=== PATIENT | male | born 1960 | race Caucasian/White ===

== ENCOUNTER → 2017-02-28 | Outpatient (CLI) | payer OTHER ==
[2017-03-01 14:21] LABS: CH 30.1; CHCM 32.2; HDW 2.17; HGB 17.9 gm/dL (13.0-17.5); MCH 30.1 pg (25.0-35.0); MCHC 32.1 g/dL (31.0-37.0); Mean Platelet Volume 10.5; RBC 5.95 m/uL (4.30-5.90); RDW 15.1 % (11.5-15.5); WBC 15.5 k/uL (3.8-10.6)
[2017-03-01 14:26] LABS: HCT 55.9 % (39.0-53.0)
[2017-03-01 15:14] LABS: Anion Gap 12 mmol/L; Blood Urea Nitrogen 17 mg/dL (9-20); Carbon Dioxide 28 mmol/L (22-30); Chloride 103 mmol/L (98-107); Non-African American GFR(MDRD) >60 (>60 ml/min/1.73 sqM); Potassium 4.7 mmol/L (3.5-5.1); Sodium 143 mmol/L (137-145)
== END | disposition home or self-care (01) ==
LOC: LABPAT 12:30
PROVIDERS: ATTEND Internal Medicine Interventional Cardiology
DX: Z01.812 Encounter for preprocedural laboratory examination (principal); R07.9 Chest pain, unspecified
CPT/HCPCS: 80051; 82565; 84520; 85027

== ENCOUNTER → 2017-09-08 | Outpatient (CLI) | payer BC | END | disposition home or self-care (01) | LOC: LABWHC1 13:29 | PROVIDERS: ATTEND Psychiatry & Neurology Neurology | DX: G89.4 Chronic pain syndrome (principal); Z79.891 Long term (current) use of opiate analgesic | CPT/HCPCS: 80307; 80324; 80356; 80369; 80372 ==

== ENCOUNTER → 2017-10-06 | Outpatient (CLI) | payer BC ==
[2017-10-06 11:33] LABS: Cholesterol 146 mg/dL (<200); HDL Cholesterol 36 mg/dL (40-60); LDL Cholesterol,Calculated 77 mg/dL (0-99); Triglycerides 164 mg/dL (<150)
== END | disposition home or self-care (01) ==
LOC: LABWHC1 10:29
PROVIDERS: ATTEND Nurse Practitioner Adult Health
DX: E78.5 Hyperlipidemia, unspecified (principal); G89.4 Chronic pain syndrome; Z79.891 Long term (current) use of opiate analgesic
CPT/HCPCS: 36415; 80061; 80356

== ENCOUNTER 2018-04-17 08:09 | Day surgery (SDC) | payer BC ==
[2018-04-15 14:41] VITALS: BMI 31.4
[~2018-04-17 08:09] MED LIST: LACTATED RINGERS 1,000 ML IV SCH
[2018-04-17] MEDS ORDERED: LIDOCAINE 1% 20 ML VIAL (10MG/ML) FOR IV START INTRADERMA ONE (08:50)
[2018-04-17] MEDS ORDERED: METOCLOPRAMIDE 5 MG/ML 2 ML VIAL IVP ONE (08:57)
[2018-04-17] MEDS ORDERED: fentaNYL (PF) 50 MCG/ML 2 ML AMP IVP ONE (09:45)
[2018-04-17 09:48] VITALS: RESP 16; TEMP 98
[2018-04-17] MEDS ORDERED: PROPOFOL 10 MG/ML 20 ML VIAL IV ONE (11:17)
[2018-04-17] MEDS ORDERED: LIDOCAINE 1% INJ 10MG/ML (20 ML MDV) ONE (11:17)
--- NOTE | 2018-04-17 11:26 | P.GSHP ---
History of Present Illness H&P Date: 04/17/18 Chief Complaint: Constipation This a 58-year-old male who presents today for colonoscopy. He's had issues with constipation. Past Medical History Past Medical History: Coronary Artery Disease (CAD), GERD/Reflux, Hyperlipidemia , Hypertension, Osteoarthritis (OA) Additional Past Medical History / Comment(s): herniated discs back & neck, migraines, palpitations, "slight ringing in ears", pain in left ankle-cause unknown, History of Any Multi-Drug Resistant Organisms: None Reported Past Surgical History: Heart Catheterization With Stent Additional Past Surgical History / Comment(s): two cardiac stent, lession removed from mouth that was non cancerous Past Anesthesia/Blood Transfusion Reactions: Motion Sickness Date of Last Stent Placement:: 03-05-17 Smoking Status: Current every day smoker - Past Family History Mother Family Medical History: Cancer Additional Family Medical History / Comment(s): breast cancer Medications and Allergies Home Medications Medication Instructions Recorded Confirmed Type ALPRAZolam [Xanax] 1 mg PO BID PRN 12/23/13 04/17/18 History Aspirin 81 mg PO HS 12/23/13 04/17/18 History Atenolol [Tenormin] 25 mg PO HS 12/23/13 04/17/18 History Cyclobenzaprine [Flexeril] 10 mg PO HS PRN 12/23/13 04/17/18 History Albuterol Inhaler [Ventolin Hfa 1 - 2 puff INHALATION Q6HR PRN 02/27/17 History Inhaler] Lactulose 10 gm PO HS 02/27/17 04/17/18 History Lisinopril [Prinivil] 20 mg PO HS 30 Days #30 tablet 03/06/17 04/17/18 Rx Atorvastatin [Lipitor] 40 mg PO HS 04/15/18 04/17/18 History Hydrochlorothiazide 25 mg PO DAILY 04/15/18 04/17/18 History Meloxicam [Mobic] 15 mg PO HS 04/15/18 04/17/18 History oxyCODONE HCL/ACETAMINOPHEN 1 tab PO TID 04/15/18 04/17/18 History [Percocet 10-325 mg] Acetaminophen [Tylenol] 2 tab PO ONCE 04/17/18 04/17/18 History Allergies Allergy/AdvReac Type Severity Reaction Status Date / Time bee pollen [Bee Pollen] Allergy Anaphylaxis Verified 04/17/18 08:17 Penicillins Allergy Rash/Hives Verified 04/17/18 08:17 Surgical - Exam Vital Signs Temp Pulse Resp BP Pulse Ox 98.0 F 69 16 139/65 95 04/17/18 08:28 04/17/18 08:28 04/17/18 08:28 04/17/18 08:28 04/17/18 08:28 - General well developed, well nourished, no distress - Eyes PERRL - ENT normal pinna - Neck no masses - Respiratory normal expansion - Cardiovascular Rhythm: regular - Abdomen Abdomen: soft, non tender Assessment and Plan Assessment: Constipation. We'll perform colonoscopy.
--- NOTE | 2018-04-17 11:41 | P.OP ---
Date of Procedure: 04/17/18 Preoperative Diagnosis: Constipation Postoperative Diagnosis: Incomplete colonoscopy Tortuous colon Diverticulosis Procedure(s) Performed: Colonoscopy Anesthesia: MAC Surgeon: Augustus Sharma Pathology: none sent Condition: stable Disposition: PACU Description of Procedure: The patient's placed on the endoscopy table in the lateral position. He received IV sedation. Digital rectal exam was performed which which revealed external hemorrhoids. Flexible colonoscope was then placed patient anus passed passed throughout the colon. The scope could not be passed beyond the left colon secondary to tortuosity of the bowel. Several times made to maneuver the colonoscope through the bowel however this wasn't possible. Scope was withdrawn. There were diverticular changes seen in the sigmoid colon the scope was then brought back the rectum and this appeared normal. Scope withdrawn for patient. Patient was scheduled for a barium enema to evaluate the remaining colon.
[2018-04-17 12:17] VITALS: BP 160/79; PULSE 60
--- NOTE | 2018-04-17 15:53 | FL ---
EXAMINATION TYPE: FL barium enema w air contrast DATE OF EXAM: 04/17/2018 COMPARISON: NONE HISTORY: Incomplete colonoscopy. Colonoscopy did not proceed past the sigmoid colon. TECHNIQUE: A double contrast barium enema study is performed. A total of 3 minutes 59 seconds of flu oroscopic time was utilized during procedure. 29 spot images are saved to PACS. FINDINGS: Flatcar Whacker view of the abdomen shows somewhat prominent gas in right and transverse colon. Barium enema is attempted. Patient is in severe pain and could not complete enema evaluation through the entire redundant right colon. There was air lock with difficulty passing contrast against promine nt air-filled proximal colonic loops There is successful passage up to level of hepatic flexure befor e patient could not continue. Visualized portion of colon shows no suspicious constricting mass or ne oplasm. Diverticulosis is identified in the sigmoid colon and distal aspect of the left colon. No dimas picious polyps are present. Appendix and terminal ileum were not assessed. IMPRESSION: Suboptimal study without constricting lesion in visualized portion of colon. Successful passage through the sigmoid colon without obstructing or constricting mass. Fairly moderate sigmoid c olonic diverticulosis is noted.
== END 2018-04-17 14:25 | disposition home or self-care (01) ==
LOC: ORWHC2ENDO 08:09
PROVIDERS: ATTEND Surgery
DX: K57.30 Diverticulosis of large intestine without perforation or abscess without bleeding (principal); K64.4 Residual hemorrhoidal skin tags; Q43.8 Other specified congenital malformations of intestine; K21.9 Gastro-esophageal reflux disease without esophagitis; I25.10 Atherosclerotic heart disease of native coronary artery without angina pectoris; I10 Essential (primary) hypertension; F17.210 Nicotine dependence, cigarettes, uncomplicated; E78.5 Hyperlipidemia, unspecified; Z80.3 Family history of malignant neoplasm of breast; Z95.5 Presence of coronary angioplasty implant and graft; M19.90 Unspecified osteoarthritis, unspecified site; M25.579 Pain in unspecified ankle and joints of unspecified foot; M51.26 Other intervertebral disc displacement, lumbar region; M50.20 Other cervical disc displacement, unspecified cervical region; G43.909 Migraine, unspecified, not intractable, without status migrainosus; J45.909 Unspecified asthma, uncomplicated; Z79.82 Long term (current) use of aspirin; Z79.1 Long term (current) use of non-steroidal anti-inflammatories (NSAID); Z79.891 Long term (current) use of opiate analgesic; Z79.899 Other long term (current) drug therapy; Z88.0 Allergy status to penicillin; Z91.030 Bee allergy status
CPT/HCPCS: 74280; 45330; J2765; J2001; J3010; J2704; 45378

== ENCOUNTER → 2018-05-18 | Outpatient (CLI) | payer BC ==
--- NOTE | 2018-05-18 20:28 | CT ---
EXAMINATION TYPE: CT abdomen pelvis w con DATE OF EXAM: 05/18/2018 COMPARISON: None HISTORY: Bilateral lower quadrant abdominal pain. CT DLP: 1306.8 mGycm Automated exposure control for dose reduction was used. CONTRAST: CT scan of the abdomen pelvis is performed with IV Contrast, patient injected with 100ml mL of Isovue 300. FINDINGS- LUNG BASES-linear changes involving the lung bases most typical atelectasis. LIVER/GB- No gross abnormality is appreciated. PANCREAS- No gross abnormality is seen. SPLEEN- No gross abnormality is seen. ADRENALS- No gross abnormality is seen. KIDNEYS/BLADDER- no hydronephrosis. There is a 3 mm calculus in the mid pole right kidney with no hyd ronephrosis. Hypodensity measuring 5 mm or less within the posterior midpole left kidney is too small to characterize. Could be followed on short-term basis to confirm stability. BOWEL-diverticulosis of the colon noted. Retained fecal debris correlate for constipation.. LYMPH NODES- No greater than 1cm abdominal or pelvic lymph nodes areappreciated. OSSEOUS STRUCTURES-hypertrophic and degenerative changes of the vertebral column.. Canal stenosis at L3-4, L4-5 and L5-S1 suspected. Arthropathy of the hips. OTHER- bilateral fat-containing inguinal hernias. Aorta of normal caliber with atherosclerotic trujillo es of the visualized vasculature. No aneurysm. Fat-containing periumbilical hernia. Metallic density is seen within the sigmoid colon region may be extrinsic to the patient's colon. Measures less than 5 mm and appears to lie outside of the colon. IMPRESSION- 1. Mid to lower pole less than 5 mm right renal calculus with no hydronephrosis. 2. Indeterminate less than 5 mm left renal lesion. 3. Minimal diverticulosis of the sigmoid colon. 4. Small fat-containing periumbilical hernia with no inflammatory changes. 5. Small bilateral fat-containing inguinal hernia with no evidence of inflammatory change..
== END | disposition home or self-care (01) ==
LOC: RADCTMAIN 15:57
PROVIDERS: ATTEND Surgery
DX: N20.0 Calculus of kidney (principal); K57.30 Diverticulosis of large intestine without perforation or abscess without bleeding; K42.9 Umbilical hernia without obstruction or gangrene; K40.20 Bilateral inguinal hernia, without obstruction or gangrene, not specified as recurrent
CPT/HCPCS: 74177; Q9967

== ENCOUNTER 2018-07-15 06:45 | Day surgery (SDC) | payer BC ==
[2018-07-13 13:02] VITALS: BMI 30.4
[~2018-07-15 06:45] MED LIST changes: +DEXAMETHASONE SOD PHOSPHATE 10 MG/ML 1 ML VIAL IV ONE; +HEPARIN SODIUM,PORCINE 5,000 UNIT/ML 1 ML VIAL SQ ONE; +HYDROmorphone 0.5 MG/0.5 ML SYRINGE IVP PRN; -LACTATED RINGERS 1,000 ML IV SCH; +LIDOCAINE 1% 20 ML VIAL (10MG/ML) FOR IV START INTRADERMA PRN; +MIDAZOLAM (PF) 2 MG/2 ML VIAL IV PRN; +ONDANSETRON 4 MG/2 ML VIAL IVP ONE; +SCOPOLAMINE 1.5MG/72HR PATCH TRANSDERM ONE; +ceFAZolin IN SWFI 2 GM/20 ML SYRINGE IVP ONE
[2018-07-15] MEDS ORDERED: ALBUTEROL NEBULIZED 2.5 MG/3 ML INHALATION STA (07:19)
[2018-07-15] MEDS: LACTATED RINGERS 1,000 ML IV SCH (07:27)
--- NOTE | 2018-07-15 07:47 | P.GSHP ---
History of Present Illness H&P Date: 07/15/18 Chief Complaint: Umbilical hernia Asst. 4-year-old male who presents today for laparoscopic robotic repair of umbilical hernia. Patient developed an incarcerated umbilical hernia. Past Medical History Past Medical History: Asthma, Coronary Artery Disease (CAD), Hyperlipidemia, Hypertension, Osteoarthritis (OA) Additional Past Medical History / Comment(s): herniated discs back & neck, migraines, constipation, "slight ringing in ears", recent URI-was treated but still has slight productive cough, hx bronchitis, diverticulitis, History of Any Multi-Drug Resistant Organisms: None Reported Past Surgical History: Heart Catheterization With Stent Additional Past Surgical History / Comment(s): pain clinic procedures/nerve blocks, two cardiac stent, lession removed from mouth Past Anesthesia/Blood Transfusion Reactions: No Reported Reaction Date of Last Stent Placement:: 03-05-17 Smoking Status: Current every day smoker - Past Family History Mother Family Medical History: Cancer Additional Family Medical History / Comment(s): breast cancer Medications and Allergies Home Medications Medication Instructions Recorded Confirmed Type Aspirin 81 mg PO HS 12/23/13 07/15/18 History Atenolol [Tenormin] 25 mg PO HS 12/23/13 07/15/18 History Cyclobenzaprine [Flexeril] 10 mg PO HS PRN 12/23/13 07/15/18 History Albuterol Inhaler [Ventolin Hfa 1 - 2 puff INHALATION Q6HR PRN 02/27/17 07/15/18 History Inhaler] Lactulose 10 gm PO HS 02/27/17 07/15/18 History Lisinopril [Prinivil] 20 mg PO HS 30 Days #30 tablet 03/06/17 07/15/18 Rx Atorvastatin [Lipitor] 40 mg PO HS 04/15/18 07/15/18 History Meloxicam [Mobic] 15 mg PO HS 04/15/18 07/15/18 History ALPRAZolam [Xanax] 1 mg PO BID 07/13/18 07/15/18 History Aspercream(Dose Unknown) 1 applicate TOPICAL DIRECTED 07/13/18 07/15/18 History Docusate [Colace] 100 mg PO TID 07/13/18 07/15/18 History Furosemide [Lasix] 20 mg PO DAILY PRN 07/13/18 07/15/18 History Hydrocodone/Acetaminophen [[place] 1 tab PO QID PRN 07/13/18 07/15/18 History 10-325] Allergies Allergy/AdvReac Type Severity Reaction Status Date / Time bee pollen [Bee Pollen] Allergy Anaphylaxis Verified 07/15/18 06:59 codeine Allergy Unknown Verified 07/15/18 06:59 Penicillins Allergy Rash/Hives Verified 07/15/18 06:59 Surgical - Exam Vital Signs Pulse Resp BP Pulse Ox 69 16 141/68 95 07/15/18 07:02 07/15/18 07:02 07/15/18 07:02 07/15/18 07:02 - General well developed, well nourished, no distress - Eyes PERRL - ENT normal pinna - Neck no masses - Respiratory normal expansion - Cardiovascular Rhythm: regular - Abdomen Abdomen: soft, non tender Hernia: umbilical (3 cm incarcerated umbilical hernia) Results - Labs 07/15/18 07:22 Diabetes panel 07/15/18 Range/Units 07:22 Potassium 4.5 (3.5-5.1) mmol/L Pituitary panel 07/15/18 Range/Units 07:22 Potassium 4.5 (3.5-5.1) mmol/L Adrenal panel 07/15/18 Range/Units 07:22 Potassium 4.5 (3.5-5.1) mmol/L Assessment and Plan Assessment: Impression mild hernia. We'll perform laparoscopic robotic-assisted repair.
[2018-07-15] MEDS ORDERED: ROCURONIUM BROMIDE 10 MG/ML 10 ML VIAL IV ONE (07:54)
[2018-07-15] MEDS ORDERED: KETOROLAC 30 MG/ML 1 ML VIAL ONE (07:54)
[2018-07-15] MEDS ORDERED: PROPOFOL 10 MG/ML 20 ML VIAL IV ONE (07:54)
[2018-07-15] MEDS ORDERED: fentaNYL (PF) 50 MCG/ML 2 ML AMP ONE (07:54)
[2018-07-15] MEDS ORDERED: SUCCINYLCHOLINE CHLORIDE 100 MG/5 ML SYR IV ONE (07:54)
[2018-07-15] MEDS ORDERED: MIDAZOLAM 2 MG/2 ML VIAL ONE (07:54)
[2018-07-15] MEDS ORDERED: GLYCOPYRROLATE 0.2 MG/ML 2 ML VIAL ONE (07:54)
[2018-07-15] MEDS ORDERED: LIDOCAINE 1% INJ 10MG/ML (20 ML MDV) ONE (07:54)
[2018-07-15] MEDS ORDERED: MORPHINE SULFATE 10 MG/ML SYRINGE ONE (07:54)
[2018-07-15] MEDS ORDERED: ePHEDrine SULFATE/0.9% NACL/PF 50 MG/5 ML SYRINGE IV ONE (07:54)
[2018-07-15] MEDS ORDERED: NEOSTIGMINE 1 MG/ML 10 ML VIAL ONE (07:54)
[2018-07-15] MEDS ORDERED: BUPIVACAIN-EPI 0.5%-1:200,000 30 ML VIAL SQ ONE (08:22)
[2018-07-15] MEDS: MEPERIDINE 50 MG/ML SYRINGE IVP ONE ×2 (09:26→09:33)
[2018-07-15 09:35] VITALS: TEMP 97.7
--- NOTE | 2018-07-15 10:00 | P.OP ---
Date of Procedure: 07/15/18 Preoperative Diagnosis: Incarcerated umbilical hernia Bilateral inguinal hernia Postoperative Diagnosis: Incarcerated umbilical hernia Bilateral inguinal hernia Procedure(s) Performed: Laparoscopic robotic system repair of bilateral hernia Laparoscopic repair of incarcerated umbilical hernia Excision of omentum Excision of bilateral cord lipomas Anesthesia: HEVER Surgeon: Augustus Sharma Estimated Blood Loss (ml): 5 Pathology: other (Omentum, cord lipomas) Condition: stable Disposition: PACU Description of Procedure: The patient's placed on the operating table in the supine position. The patient received general anesthesia. The patient's abdomen was prepped and draped in usual sterile fashion. The skin was anesthetized 1% local Xylocaine at the incision sites. Using an 11 blade a skin incision was made at the umbilicus. The incarcerated omentum was dissected free. The fascia was grasped with a Maspeth and then the peritoneal cavity was entered with the Veress needle. Position of the Veress needle was confirmed with a positive drop test. After adequate insufflation a 5 mm trocar was placed into the peritoneal cavity. The Laparoscope was placed the peritoneal cavity. And a robotic 8 mm trocar was placed in the right lateral position and then another 8 mm robotic trochars placed in the left lateral position. The original 5 mm trocar was exchanged for a 12 mm trocar. The patient was placed in reverse Trendelenburg and then the patient was docked to the robot. Next the peritoneum over top of the right inguinal hernia was incised and then using blunt and sharp dissection and electrocautery the hernia sac was dissected free from the floor of the inguinal canal. The cord lipoma was dissected free from the cord. The hernia sac was completely reduced into the peritoneal cavity. And then using the Pro nutrition assistant mesh the hernia was repaired. The peritoneum was then sutured with 20V lock suture. Next, the left inguinal hernia was repaired.Next the peritoneum over top of the hernia was incised and then using blunt and sharp dissection and electrocautery the hernia sac was dissected free from the floor of the inguinal canal. The cord lipoma was dissected free from the cord. The hernia sac was completely reduced into the peritoneal cavity. And then using the Pro nutrition assistant mesh the hernia was repaired. The peritoneum was then sutured with 20V lock suture. The patient was then undocked the robot. The cord lipomas were retrieved. The needle was withdrawn from the peritoneal cavity. The umbilical hernia site was closed with 0 Ethibond suture. The skin was closed interrupted 3-0 Monocryl suture. Dermabond dressing was applied. Patient was sent to recovery in stable condition.
[2018-07-15] MEDS ORDERED: HYDROcodone/APAP 10-325MG 1 EACH TAB PO ONE ×2 (10:23→10:58)
[2018-07-15 11:31] VITALS: RESP 18
[2018-07-15 11:32] VITALS: PULSE 70
[2018-07-15 11:34] VITALS: BP 151/76
== END 2018-07-15 12:15 | disposition home or self-care (01) ==
LOC: OR 06:45
PROVIDERS: ATTEND Surgery
DX: K42.0 Umbilical hernia with obstruction, without gangrene (principal); K40.20 Bilateral inguinal hernia, without obstruction or gangrene, not specified as recurrent; D17.6 Benign lipomatous neoplasm of spermatic cord; I25.10 Atherosclerotic heart disease of native coronary artery without angina pectoris; I10 Essential (primary) hypertension; F17.200 Nicotine dependence, unspecified, uncomplicated; E78.5 Hyperlipidemia, unspecified; M19.90 Unspecified osteoarthritis, unspecified site; J44.9 Chronic obstructive pulmonary disease, unspecified; Z95.5 Presence of coronary angioplasty implant and graft; Z79.1 Long term (current) use of non-steroidal anti-inflammatories (NSAID); Z79.82 Long term (current) use of aspirin; Z79.899 Other long term (current) drug therapy; Z79.891 Long term (current) use of opiate analgesic; Z88.5 Allergy status to narcotic agent; Z88.0 Allergy status to penicillin; Z91.030 Bee allergy status
CPT/HCPCS: 49650; 49653; S2900; 84132; 88304; 88305; 93005; 94640

== ENCOUNTER 2020-04-07 22:08 | Emergency (ER) | payer BC ==
[2020-04-07 22:12] VITALS: TEMP 98.3
--- NOTE | 2020-04-07 22:23 | ED ---
Chest Pain HPI - General Chief Complaint: Chest Pain Stated Complaint: Chest Pain Time Seen by Provider: 04/07/20 22:19 Source: patient, RN notes reviewed, old records reviewed Mode of arrival: ambulatory Limitations: no limitations - History of Present Illness Initial Comments: This is a 60-year-old male to the ER for evaluation chest pain. Patient states earlier today his heart rate or cough was very rapid, short of breath, palpitations. Heart was beating heaviness chest. Patient's history of asthma CAD hypertension high cholesterol. MD Complaint: chest pain -: hour(s) Onset: during rest Pain Location: substernal Pain Radiation: none Severity: moderate Severity scale (1-10): 7 Quality: tightness Consistency: constant Improves With: other (none) Worsens With: nothing Anginal Symptoms: nausea, dyspnea Other Symptoms: rash Treatments Prior to Arrival: none - Related Data Home Medications Medication Instructions Recorded Confirmed Aspirin 81 mg PO HS 12/23/13 04/07/20 Cyclobenzaprine [Flexeril] 10 mg PO TID PRN 12/23/13 04/07/20 atenoloL [Tenormin] 25 mg PO HS 12/23/13 04/07/20 Atorvastatin [Lipitor] 40 mg PO HS 04/15/18 04/07/20 ALPRAZolam [Xanax] 1 mg PO BID PRN 07/13/18 04/07/20 Furosemide [Lasix] 20 mg PO DAILY PRN 07/13/18 04/07/20 Hydrocodone/Acetaminophen [[place] 1 tab PO QID 07/13/18 04/07/20 10-325] [place]ien 1 tab PO AC-LUNCH 04/07/20 04/07/20 Lucien 2 tab PO AC-SUPPER 04/07/20 04/07/20 Butalb/APAP/Caff 50-325-40Mg 1 tab PO Q8HR PRN 04/07/20 04/07/20 [Fioricet 50-325-40] Fish Oil/Dha/Epa [Fish Oil 1,200 1 cap PO DAILY 04/07/20 04/07/20 mg Fish Oil] Ibuprofen [Motrin] 800 mg PO BID PRN 04/07/20 04/07/20 Magnesium(Unknown Dose) 1 tab PO DAILY PRN 04/07/20 04/07/20 Multivitamins, Thera [Multivitamin 1 tab PO HS 04/07/20 04/07/20 (formulary)] Nitroglycerin Sl Tabs [Nitrostat] 0.4 mg SL Q5M PRN 04/07/20 04/07/20 Previous Rx's Medication Instructions Recorded lisinopriL [Prinivil] 20 mg PO HS 30 Days #30 tablet 03/06/17 Allergies Allergy/AdvReac Type Severity Reaction Status Date / Time bee pollen [Bee Pollen] Allergy Anaphylaxis Verified 04/07/20 23:05 bee venom protein (honey bee) Allergy Anaphylaxis Verified 04/07/20 23:05 codeine Allergy Unknown Verified 04/07/20 23:05 Penicillins Allergy Rash/Hives Verified 04/07/20 23:05 Review of Systems ROS Statement: Those systems with pertinent positive or pertinent negative responses have been documented in the HPI. ROS Other: All systems not noted in ROS Statement are negative. EKG Findings - EKG Comments: EKG Findings:: EKG shows NSR 64 [place] 204 QRS 98 QTc 396 Past Medical History Past Medical History: Asthma, Coronary Artery Disease (CAD), Hyperlipidemia, Hypertension, Osteoarthritis (OA) Additional Past Medical History / Comment(s): herniated discs back & neck, migraines, constipation, "slight ringing in ears", recent URI-was treated but still has slight productive cough, hx bronchitis, diverticulitis, History of Any Multi-Drug Resistant Organisms: None Reported Past Surgical History: Heart Catheterization With Stent Additional Past Surgical History / Comment(s): pain clinic procedures/nerve blocks, two cardiac stent, lession removed from mouth Past Anesthesia/Blood Transfusion Reactions: No Reported Reaction Date of Last Stent Placement:: 03-05-17 Past Psychological History: Anxiety Smoking Status: Current every day smoker Past Alcohol Use History: Rare Past Drug Use History: None Reported - Past Family History Mother Family Medical History: Cancer Additional Family Medical History / Comment(s): breast cancer General Exam Limitations: no limitations General appearance: alert, in no apparent distress Head exam: Present: atraumatic, normocephalic, normal inspection Eye exam: Present: normal appearance, PERRL, EOMI. Absent: scleral icterus, conjunctival injection, periorbital swelling ENT exam: Present: normal exam, mucous membranes moist Neck exam: Present: normal inspection. Absent: tenderness, meningismus, lymphadenopathy Respiratory exam: Present: normal lung sounds bilaterally. Absent: respiratory distress, wheezes, rales, rhonchi, stridor Cardiovascular Exam: Present: regular rate, normal rhythm, normal heart sounds. Absent: systolic murmur, diastolic murmur, rubs, gallop, clicks GI/Abdominal exam: Present: soft, normal bowel sounds. Absent: distended, tenderness, guarding, rebound, rigid Extremities exam: Present: normal inspection, full ROM, normal capillary refill. Absent: tenderness, pedal edema, joint swelling, calf tenderness Back exam: Present: normal inspection Neurological exam: Present: alert, oriented X3, CN II-XII intact Psychiatric exam: Present: normal affect, normal mood Skin exam: Present: warm, dry, intact, normal color. Absent: rash Course Vital Signs 04/07/20 04/07/20 04/07/20 22:08 22:28 23:14 Temperature 98.3 F Pulse Rate 68 63 Pulse Rate [ 63 Hog Buyer ] Respiratory 20 18 Rate Blood Pressure 175/76 145/78 O2 Sat by Pulse 97 98 Oximetry 04/08/20 02:03 Temperature Pulse Rate 60 Pulse Rate [ Hog Buyer ] Respiratory 18 Rate Blood Pressure 142/86 O2 Sat by Pulse 98 Oximetry - Reevaluation(s) Reevaluation #1: Medical record is reviewed Patient has resolution improvement in symptoms throughout ER stay Patient continues to feel better Patient informed results and questions are answered Patient feels good for discharge home Reevaluation #2: Spoke with patient at length regarding long history of heart disease, patient states her to follow-up as an outpatient, troponin did not blood here in the ER and patient can be discharged home understanding risks of discharge included possible heart disease and concurrent heart damage Chest Pain MDM - MDM 60 male with atypical chest pain here in the ER. Palpitations. Patient feels good for discharge and can be discharged home, patient was offered observation which she has refused Disposition Clinical Impression: Atypical chest pain, Chest pain Disposition: HOME SELF-CARE Condition: Good Instructions (If sedation given, give patient instructions): Chest Pain (ED) Is patient prescribed a controlled substance at d/c from ED?: No Referrals: Soo Olivier MD [Primary Care Provider] - 1-2 days
[2020-04-07 22:46] LABS: Basophils # (A) 0.3 k/uL (0-0.2); Basophils % (A) 1 %; Eosinophils # (A) 0.4 k/uL (0-0.7); Eosinophils % (A) 2 %; HCT 48.9 % (39.0-53.0); HGB 16.7 gm/dL (13.0-17.5); Lymphocytes # (A) 4.7 k/uL (1.0-4.8); Lymphocytes % (A) 25 %; MCH 32.5 pg (25.0-35.0); MCHC 34.1 g/dL (31.0-37.0); MCV 95.1 fL (80.0-100.0); Mean Platelet Volume 8.8; Monocytes % (A) 5 %; Neutrophils % (A) 65 %; Platelet Count 189 k/uL (150-450); RBC 5.14 m/uL (4.30-5.90); WBC 18.7 k/uL (3.8-10.6)
--- NOTE | 2020-04-07 22:51 | XR ---
EXAMINATION TYPE: XR chest 2V DATE OF EXAM: 04/07/2020 COMPARISON: NONE HISTORY: Chest pain. Short of breath. TECHNIQUE: 2 views FINDINGS: There is coarse interstitial density in the lungs. Heart size is normal. There are no hilar masses. Costophrenic angles are clear. Bony thorax is intact. IMPRESSION: Pulmonary interstitial fibrosis. Normal heart. No acute lung disease.
[2020-04-07 22:57] LABS: Albumin 4.5 g/dL (3.5-5.0); Calcium 9.5 mg/dL (8.4-10.2); Magnesium 2.2 mg/dL (1.6-2.3); Total Bilirubin 0.5 mg/dL (0.2-1.3); Total Protein 7.2 g/dL (6.3-8.2)
[2020-04-07 22:58] LABS: Partial Thromboplastin Time 24.7 sec (22.0-30.0); Prothrombin Time 10.7 sec (9.0-12.0)
[2020-04-07 23:15] VITALS: RESP 18
[2020-04-08 02:04] VITALS: BP 142/86; PULSE 60
== END 2020-04-08 02:04 | disposition home or self-care (01) ==
LOC: EC 22:08
DX: R07.89 Other chest pain (principal); R00.2 Palpitations; F41.9 Anxiety disorder, unspecified; J45.909 Unspecified asthma, uncomplicated; E78.5 Hyperlipidemia, unspecified; I10 Essential (primary) hypertension; M19.90 Unspecified osteoarthritis, unspecified site; I25.10 Atherosclerotic heart disease of native coronary artery without angina pectoris; F17.200 Nicotine dependence, unspecified, uncomplicated; Z79.82 Long term (current) use of aspirin; Z79.899 Other long term (current) drug therapy; Z88.0 Allergy status to penicillin; Z88.5 Allergy status to narcotic agent; Z91.030 Bee allergy status; Z95.5 Presence of coronary angioplasty implant and graft; Z86.14 Personal history of Methicillin resistant Staphylococcus aureus infection
CPT/HCPCS: 36415; 71046; 80053; 83735; 84484; 85025; 85610; 85730; 93005; 99285

== ENCOUNTER → 2020-05-17 | Outpatient (CLI) | payer BC ==
[2020-05-17 11:24] LABS: African American GFR (CKD) >90 (>60 ml/min/1.73 sqM); Anion Gap 9 mmol/L; Blood Urea Nitrogen 15 mg/dL (9-20); Carbon Dioxide 25 mmol/L (22-30); Chloride 107 mmol/L (98-107); Non-African American GFR(CKD) 89 (>60 ml/min/1.73 sqM); Potassium 4.5 mmol/L (3.5-5.1); Sodium 141 mmol/L (137-145)
[2020-05-17 11:25] LABS: HCT 48.1 % (39.0-53.0); HGB 15.6 gm/dL (13.0-17.5); MCH 31.2 pg (25.0-35.0); MCHC 32.5 g/dL (31.0-37.0); MCV 95.8 fL (80.0-100.0); Mean Platelet Volume 9.4; Platelet Count 201 k/uL (150-450); RBC 5.02 m/uL (4.30-5.90); RDW 13.5 % (11.5-15.5); WBC 16.5 k/uL (3.8-10.6)
== END | disposition home or self-care (01) ==
LOC: LABPAT 09:47
PROVIDERS: ATTEND Internal Medicine Interventional Cardiology
DX: Z01.818 Encounter for other preprocedural examination (principal); I25.10 Atherosclerotic heart disease of native coronary artery without angina pectoris
CPT/HCPCS: 80051; 82565; 84520; 85027

== ENCOUNTER 2020-05-19 08:10 | Day surgery (SDC) | payer BC ==
[2020-05-16 09:38] VITALS: BMI 30.1
[~2020-05-19 08:10] MED LIST changes: +ALPRAZolam 0.25 MG TAB PO PRN; +ASPIRIN 325 MG TAB PO STA; -DEXAMETHASONE SOD PHOSPHATE 10 MG/ML 1 ML VIAL IV ONE; +HEPARIN SODIUM,PORCINE 10,000 UNIT in SODIUM CHLORIDE 0.9% 1,000 ML IRRIGATION PRN; +HEPARIN SODIUM,PORCINE 2,500 UNIT in SODIUM CHLORIDE 0.9% 250 ML IRRIGATION PRN; -HEPARIN SODIUM,PORCINE 5,000 UNIT/ML 1 ML VIAL SQ ONE; -HYDROmorphone 0.5 MG/0.5 ML SYRINGE IVP PRN; -LIDOCAINE 1% 20 ML VIAL (10MG/ML) FOR IV START INTRADERMA PRN; -MIDAZOLAM (PF) 2 MG/2 ML VIAL IV PRN; +NITROGLYCERIN SL TABS 0.4 MG TAB SUBLINGUAL PRN; -ONDANSETRON 4 MG/2 ML VIAL IVP ONE; -SCOPOLAMINE 1.5MG/72HR PATCH TRANSDERM ONE; +SODIUM CHLORIDE 0.9% 1,000 ML in EMPTY BAG 1 BAG IV ONE; -ceFAZolin IN SWFI 2 GM/20 ML SYRINGE IVP ONE
[2020-05-19] MEDS ORDERED: VERAPAMIL 2.5 MG/ML 2 ML AMP ONE (08:37)
[2020-05-19] MEDS ORDERED: LIDOCAINE 1% INJ 10MG/ML (20 ML MDV) ONE (08:37)
[2020-05-19 08:41] VITALS: RESP 16; TEMP 97.9
[2020-05-19 08:56] LABS: Basophils # (A) 0.1 k/uL (0-0.2); Basophils % (A) 1 %; Eosinophils # (A) 0.3 k/uL (0-0.7); Eosinophils % (A) 2 %; HCT 47.3 % (39.0-53.0); HGB 15.9 gm/dL (13.0-17.5); Lymphocytes # (A) 4.9 k/uL (1.0-4.8); Lymphocytes % (A) 30 %; MCHC 33.7 g/dL (31.0-37.0); MCV 94.9 fL (80.0-100.0); Mean Platelet Volume 9.1; Monocytes # (A) 0.9 k/uL (0-1.0); Monocytes % (A) 5 %; Neutrophils # (A) 9.9 k/uL (1.3-7.7); Neutrophils % (A) 61 %; Platelet Count 193 k/uL (150-450); RBC 4.98 m/uL (4.30-5.90); WBC 16.3 k/uL (3.8-10.6)
[2020-05-19] MEDS ORDERED: MIDAZOLAM 2 MG/2 ML VIAL IV ONE ×2 (09:12→09:17)
[2020-05-19] MEDS ORDERED: LIDOCAINE 1% INJ 10MG/ML (20 ML MDV) SQ ONE (09:13)
[2020-05-19] MEDS ORDERED: HEPARIN SODIUM 1,000 UN/ML (10ML VL) ONE (09:14)
[2020-05-19] MEDS ORDERED: VERAPAMIL SYRINGE (5 MG/10 ML) INTRAARTER ONE (09:15)
[2020-05-19] MEDS ORDERED: HEPARIN SODIUM 1,000 UN/ML (10ML VL) IV ONE (09:16)
[2020-05-19] MEDS ORDERED: CLOPIDOGREL 75 MG TAB PO ONE (09:35)
[2020-05-19] MEDS ORDERED: IOPAMIDOL-370 125ML BTL INJ ONE (09:35)
[2020-05-19] MEDS ORDERED: CLOPIDOGREL 75 MG TAB ONE (09:36)
[2020-05-19] MEDS ORDERED: ALPRAZolam 1 MG TAB PO PRN (09:41)
[2020-05-19] MEDS ORDERED: IBUPROFEN 800 MG TAB PO PRN (09:41)
[2020-05-19] MEDS ORDERED: CYCLOBENZAPRINE 10 MG TAB PO PRN (09:41)
[2020-05-19] MEDS ORDERED: BUTALB/APAP/CAFF 50-325-40MG TAB PO PRN (09:41)
[2020-05-19] MEDS ORDERED: FUROSEMIDE 20 MG TAB PO PRN (09:41)
[2020-05-19] MEDS ORDERED: ZOLPIDEM 5 MG TAB PO PRN (09:44)
[2020-05-19] MEDS ORDERED: MAG HYDROX/AL HYDROX/SIMETH 30 ML CUP PO PRN (09:44)
[2020-05-19] MEDS ORDERED: NITROGLYCERIN SL TABS 0.4 MG TAB SUBLINGUAL PRN (09:44)
[2020-05-19] MEDS ORDERED: RX INFO: IV CONTRAST WAS GIVEN 1 EACH MISC MISCELLANE PRN (09:44)
[2020-05-19] MEDS ORDERED: ATROPINE SULFATE 0.1 MG/ML 10ML SYRINGE IV PRN (09:44)
[2020-05-19] MEDS ORDERED: SODIUM CHLORIDE 0.9% 1,000 ML IV SCH (09:45)
--- NOTE | 2020-05-19 10:33 | CC ---
CARDIAC CATHETERIZATION REPORT CARDIAC CATHETERIZATION AND PERCUTANEOUS CORONARY INTERVENTION: PERFORMING PHYSICIAN: Chapincito Parker MD. PROCEDURE PERFORMED: 1. Selective right and left coronary angiogram. 2. Left heart catheterization. 3. Successful stenting of the mid RCA using 3.25 x 12 mm Xience drug-eluting stent with an excellent angiographic result. INDICATION: This is a 60-year-old gentleman with coronary artery disease and prior stenting of the RCA and LAD who was seen in the office recently for intermittent episodes of chest discomfort. He underwent a myocardial perfusion imaging stress test and that came in to be abnormal showing anterior ischemia. Because of that, a heart catheterization was advised. APPROACH: Right radial artery. COMPLICATION: None. LEVEL OF SEDATION: Moderate with sedation length of 22 minutes. PROCEDURE DESCRIPTION: After obtaining an informed consent, the patient was brought to the cardiac landscaping and groundskeeping laborer. The right radial artery was cannulated using micropuncture technique, the micropuncture wire passed easily then I placed a 6-[place] sheath at the right radial artery. Verapamil IA 2 mg and 10,000 units of heparin IV. Selective right and left coronary angiogram performed using JR4 and JL3.5 catheters. Left heart catheterization was performed using the JR4 catheter which crossed the aortic valve then I did pullback across the valve. After that I did intervene on the right coronary artery. Please see a separate paragraph for that. SELECTIVE CORONARY ANGIOGRAM: 1. The RCA is a large caliber vessel and it is a dominant vessel. The RCA is stented in the midportion. Proximal to the stented segment, there was an area of eccentric plaque appeared to be in the range of 70%. The RCA distally appeared to be angiographically normal. After that, it bifurcates into PDA and PLV branches both appeared to be angiographically normal. 2. The left main is angiographically normal. It bifurcates into LCX and LAD. 3. The LCX is a large caliber vessel. It is a nondominant vessel. The proximal left circumflex is angiographically normal. It gives rise into the first obtuse marginal branch which appeared to be angiographically normal. The mid left circumflex has mild disease only and the circumflex distally appeared to be angiographically normal. 4. The LAD: The proximal LAD appeared to be angiographically normal. The mid LAD has a tubular lesion appeared to be in the range of 60%. The LAD distally appeared to be angiographically normal. HEMODYNAMICS: The LVEDP was about 20 mmHg without significant gradient across the aortic valve. PCI OF THE RCA: Anticoagulation was initiated using heparin. The patient was given a dose of 10,000 units of heparin IV at the beginning of the procedure with continuous ACT monitoring throughout the procedure. Engaging the right coronary artery was achieved using JR4 guide. After that I did wire the right coronary artery using a run-through wire. After that I did direct stenting of the lesion using 3.25 x 12 mm Xience drug-eluting stent where the stent was positioned under fluoroscopy guidance and deployed under 16 atmospheres for 20 seconds. The following angiogram showed excellent angiographic results and the procedure was completed without any complication. CONCLUSION: 1. Severe disease involving the mid right coronary artery just proximal to a stented segment. I did successful stenting of the mid RCA with an excellent angiographic result. 2. Normal left main coronary artery. 3. Mild disease involving the left circumflex coronary artery. 4. Patent stent in the proximal left anterior descending artery. The mid LAD has a tubular lesion appeared to be in the range of 60%. 5. Elevated LVEDP. POSTPROCEDURE MANAGEMENT: 1. Maximize medical treatment. 2. Aggressive cholesterol control. 3. Continue monitoring the lesion in the mid left anterior descending artery clinically. 4. Follow up with the patient. MMODL / IJN: [id number] /
[2020-05-19] MEDS ORDERED: ALLI PO SCH (12:30)
[2020-05-19] MEDS ORDERED: HYDROcodone/APAP 10-325MG 1 EACH TAB PO SCH (13:00)
[2020-05-19 13:56] VITALS: BP 123/64; PULSE 54
[2020-05-19] MEDS ORDERED: MULTIVITAMINS, THERA 1 EACH TAB PO SCH (21:00)
[2020-05-19] MEDS ORDERED: ATORVASTATIN 40 MG TAB PO SCH (21:00)
[2020-05-19] MEDS ORDERED: atenoloL 25 MG TAB PO SCH (21:00)
[2020-05-19] MEDS ORDERED: ASPIRIN 81 MG PO SCH (21:00)
[2020-05-19] MEDS ORDERED: lisinopriL 20 MG TAB PO SCH (21:00)
[2020-05-20] MEDS ORDERED: CLOPIDOGREL 75 MG TAB PO SCH (09:00)
[2020-05-20] MEDS ORDERED: NON FORMULARY DRUG (L.Acidoph,Paracasei, B.Lactis [Probiotic] 1 EACH Capsule) PO SCH (09:00)
[2020-05-20] MEDS ORDERED: amLODIPine 2.5 MG TAB PO SCH (09:00)
== END 2020-05-19 15:09 | disposition home or self-care (01) ==
LOC: CATHCVL 08:10
PROVIDERS: ATTEND Internal Medicine Interventional Cardiology
DX: I25.10 Atherosclerotic heart disease of native coronary artery without angina pectoris (principal); R93.1 Abnormal findings on diagnostic imaging of heart and coronary circulation; R94.39 Abnormal result of other cardiovascular function study; R07.89 Other chest pain; E78.5 Hyperlipidemia, unspecified; I35.1 Nonrheumatic aortic (valve) insufficiency; I10 Essential (primary) hypertension; F17.200 Nicotine dependence, unspecified, uncomplicated; Z95.5 Presence of coronary angioplasty implant and graft; Z79.82 Long term (current) use of aspirin; Z79.891 Long term (current) use of opiate analgesic; Z79.899 Other long term (current) drug therapy; Z88.5 Allergy status to narcotic agent; Z88.0 Allergy status to penicillin
CPT/HCPCS: 93458; 85025; C9600; C1887; C1769 ×2; C1874; C1894; J2250; J2001; J1644; Q9967

== ENCOUNTER 2020-08-27 21:32 | Inpatient (IN) | payer BC ==
[2020-08-27] MEDS ORDERED: PANTOPRAZOLE 40 MG/10 ML VIAL IVP STA (22:03)
[2020-08-27] MEDS ORDERED: ONDANSETRON 4 MG/2 ML VIAL IVP STA (22:03)
[2020-08-27] MEDS ORDERED: MORPHINE SULFATE 4 MG/ML SYRINGE IVP STA (22:03)
--- NOTE | 2020-08-27 22:17 | ED ---
GI Bleed HPI - General Source: patient Mode of arrival: ambulatory Limitations: no limitations <Jessica Quarles - Last Filed: 08/27/20 23:05> <Anton Underwood - Last Filed: 08/29/20 08:27> - General Chief complaint: GI Bleed Stated complaint: Black stool Time Seen by Provider: 08/27/20 21:52 - History of Present Illness Initial comments: 60 year-old male patient presents to the emergency department for evaluation of black tarry stools and left hip pain. Patient states he has been having black stools for the last week. States he does develop nausea whenever he eats. Denies any significant heart burn or midepigastric discomfort. Denies abdominal pain. Denies history of GI bleed or ulcers. Does take plavix for cardiac stents. Has been on oral steroids for the last week for left hip pain. Patient states he has been having some weakness and dizziness over the last couple of days. Denies chest pain or shortness of breath. He is also reporting left hip pain. States about a week ago he pressed down on his tractor clutch when he felt pain to the hip. States that pressing over the hip, walking, or movement makes it worse. He did get a cortisone injection from his physician. Denies having any xrays. Patient denies any recent rash, fever, chills, cough, shortness of breath, chest pain, vomiting, diarrhea, constipation, back pain, numbness, tingling, hematuria, dysuria, urinary urgency, urinary frequency, headache, visual changes, or any other complaints. (Jessica Quarles) - Related Data Home Medications Medication Instructions Recorded Confirmed Aspirin 81 mg PO HS 12/23/13 08/27/20 Cyclobenzaprine [Flexeril] 10 mg PO TID PRN 12/23/13 08/27/20 atenoloL [Tenormin] 25 mg PO HS 12/23/13 08/27/20 ALPRAZolam [Xanax] 0.5 - 1 mg PO BID 07/13/18 08/27/20 Furosemide [Lasix] 20 mg PO Q48H PRN 07/13/18 08/27/20 Hydrocodone/Acetaminophen [[place] 1 tab PO QID 07/13/18 08/27/20 10-325] Nitroglycerin Sl Tabs [Nitrostat] 0.4 mg SL Q5M PRN 04/07/20 08/27/20 amLODIPine [Norvasc] 2.5 mg PO DAILY 05/16/20 08/27/20 Atorvastatin [Lipitor] 80 mg PO HS 08/27/20 08/27/20 Clopidogrel [Plavix] 75 mg PO HS 08/27/20 08/27/20 Previous Rx's Medication Instructions Recorded lisinopriL [Prinivil] 20 mg PO HS 30 Days #30 tablet 03/06/17 Allergies Allergy/AdvReac Type Severity Reaction Status Date / Time bee pollen [Bee Pollen] Allergy Anaphylaxis Verified 08/27/20 22:59 bee venom protein (honey bee) Allergy Anaphylaxis Verified 08/27/20 22:59 codeine Allergy Unknown Verified 08/27/20 22:59 Penicillins Allergy Rash/Hives Verified 08/27/20 22:59 Review of Systems ROS Other: All systems not noted in ROS Statement are negative. <Jessica Quarles - Last Filed: 08/27/20 23:05> ROS Other: All systems not noted in ROS Statement are negative. <Anton Underwood - Last Filed: 08/29/20 08:27> ROS Statement: Those systems with pertinent positive or pertinent negative responses have been documented in the HPI. Past Medical History Past Medical History: Asthma, Coronary Artery Disease (CAD), Hyperlipidemia, Hypertension, Osteoarthritis (OA) Additional Past Medical History / Comment(s): herniated discs back & neck, migraines, constipation, "slight ringing in ears",, hx bronchitis, diverticulitis, History of Any Multi-Drug Resistant Organisms: None Reported Past Surgical History: Heart Catheterization With Stent, Hernia Repair Additional Past Surgical History / Comment(s): pain clinic procedures/nerve blocks, two cardiac stent, lession removed from mouth umbilical, and r&l inguinal Past Anesthesia/Blood Transfusion Reactions: No Reported Reaction Date of Last Stent Placement:: 03-05-17 Past Psychological History: Anxiety Smoking Status: Current every day smoker Past Alcohol Use History: Occasional Past Drug Use History: None Reported - Past Family History Mother Family Medical History: Cancer Additional Family Medical History / Comment(s): breast cancer <Jessica Quarles - Last Filed: 08/27/20 23:05> General Exam Limitations: no limitations General appearance: alert, in no apparent distress, other (Physical well- developed, well-nourished adult male patient in no acute distress. Vital signs upon presentation temperature 98.4F, pulse 86, respirations 18, blood pressure 150/66, pulse ox 100% on room air.) Eye exam: Present: normal appearance, PERRL, EOMI. Absent: scleral icterus, conjunctival injection, periorbital swelling ENT exam: Present: normal exam, normal oropharynx, mucous membranes moist Respiratory exam: Present: normal lung sounds bilaterally. Absent: respiratory distress, wheezes, rales, rhonchi, stridor Cardiovascular Exam: Present: regular rate, normal rhythm, normal heart sounds. Absent: systolic murmur, diastolic murmur, rubs, gallop, clicks GI/Abdominal exam: Present: soft, normal bowel sounds. Absent: distended, tenderness, guarding, rebound, rigid Rectal exam: Present: black stool Neurological exam: Present: alert, oriented X3, CN II-XII intact Psychiatric exam: Present: normal affect, normal mood Skin exam: Present: warm, dry, intact, normal color. Absent: rash <Jessica Quarles - Last Filed: 08/27/20 23:05> Course Vital Signs 08/27/20 08/27/20 08/27/20 21:39 22:13 23:07 Temperature 98.4 F Pulse Rate 86 83 86 Respiratory 18 18 18 Rate Blood Pressure 150/66 124/61 106/53 O2 Sat by Pulse 100 98 95 Oximetry 08/28/20 00:07 Temperature 98 F Pulse Rate 79 Respiratory 18 Rate Blood Pressure 110/74 O2 Sat by Pulse 97 Oximetry Medical Decision Making - Lab Data Result diagrams: 08/27/20 22:00 08/27/20 22:00 - Radiology Data Radiology results: image reviewed <Jessica Quarles - Last Filed: 08/27/20 23:05> - Lab Data Result diagrams: 08/28/20 11:53 08/27/20 22:00 <Anton Underwood - Last Filed: 08/29/20 08:27> - Medical Decision Making 60-year-old male patient presented for evaluation of black stools and left hip pain. Physical examination did reveal left lateral hip tenderness. No skin changes or overlying erythema. He is afebrile. No abdominal tenderness. Vital signs are within normal ranges. Labs reviewed and did reveal white blood cell count at 25.2, hemoglobin 11.1 which is down from 15 in May. Coags normal. Occult stools positive. Patient has been on steroids for the last week which is most likely contributing to elevated white blood cell count possibly upper GI bleed. He does take Plavix for cardiac stents. He'll be admitted to the hospital for further evaluation by GI. He'll be on clear liquid diet, holding Plavix at this time. Case discussed in my attending Dr. Underwood. (Jessica Quarles) I saw this patient in conjunction with the physician assistant professor of drama. I performed independent history and physical exam. Agree with case management. (Anton Salamanca) - Lab Data Lab Results 08/27/20 08/27/20 08/27/20 Range/Units 22:00 22:00 22:00 WBC 25.2 H (3.8-10.6) k/uL RBC 3.30 L (4.30-5.90) m/uL Hgb 11.1 L (13.0-17.5) gm/dL Hct 32.0 L (39.0-53.0) % MCV 96.9 (80.0-100.0) fL MCH 33.6 (25.0-35.0) pg MCHC 34.7 (31.0-37.0) g/dL RDW 14.6 (11.5-15.5) % Plt Count 248 (150-450) k/uL MPV 8.9 Neutrophils % (Manual) 50 % Band Neuts % (Manual) 1 % Lymphocytes % (Manual) 46 % Monocytes % (Manual) 2 % Eosinophils % (Manual) 1 % Neutrophils # (Manual) 12.80 H (1.3-7.7) k/uL Lymphocytes # (Manual) 11.59 H (1.0-4.8) k/uL Monocytes # (Manual) 0.50 (0-1.0) k/uL Eosinophils # (Manual) 0.25 (0-0.7) k/uL Nucleated RBCs 0 (0-0) /100 WBC Manual Slide Review Performed RBC Morphology Normal PT 10.3 (9.0-12.0) sec INR 1.0 (<1.2) APTT 22.6 (22.0-30.0) sec Sodium 139 (137-145) mmol/L Potassium 4.2 (3.5-5.1) mmol/L Chloride 106 (98-107) mmol/L Carbon Dioxide 26 (22-30) mmol/L Anion Gap 7 mmol/L BUN 28 H (9-20) mg/dL Creatinine 1.15 (0.66-1.25) mg/dL Est GFR (CKD-EPI)AfAm 79 (>60 ml/min/1.73 sqM) Est GFR (CKD-EPI)NonAf 68 (>60 ml/min/1.73 sqM) Glucose 112 H (74-99) mg/dL Plasma Lactic Acid Abdullahi (0.7-2.0) mmol/L Calcium 9.2 (8.4-10.2) mg/dL Total Bilirubin 0.2 (0.2-1.3) mg/dL AST 28 (17-59) U/L ALT 45 (4-49) U/L Alkaline Phosphatase 85 (38-126) U/L Troponin I (0.000-0.034) ng/mL Total Protein 6.0 L (6.3-8.2) g/dL Albumin 3.8 (3.5-5.0) g/dL Stool Occult Blood (Negative) Blood Type Blood Type Confirm Blood Type Recheck Bld Type Recheck Status Antibody Screen Spec Expiration Date 08/27/20 08/27/20 08/27/20 Range/Units 22:00 22:00 22:00 WBC (3.8-10.6) k/uL RBC (4.30-5.90) m/uL Hgb (13.0-17.5) gm/dL Hct (39.0-53.0) % MCV (80.0-100.0) fL MCH (25.0-35.0) pg MCHC (31.0-37.0) g/dL RDW (11.5-15.5) % Plt Count (150-450) k/uL MPV Neutrophils % (Manual) % Band Neuts % (Manual) % Lymphocytes % (Manual) % Monocytes % (Manual) % Eosinophils % (Manual) % Neutrophils # (Manual) (1.3-7.7) k/uL Lymphocytes # (Manual) (1.0-4.8) k/uL Monocytes # (Manual) (0-1.0) k/uL Eosinophils # (Manual) (0-0.7) k/uL Nucleated RBCs (0-0) /100 WBC Manual Slide Review RBC Morphology PT (9.0-12.0) sec INR (<1.2) APTT (22.0-30.0) sec Sodium (137-145) mmol/L Potassium (3.5-5.1) mmol/L Chloride (98-107) mmol/L Carbon Dioxide (22-30) mmol/L Anion Gap mmol/L BUN (9-20) mg/dL Creatinine (0.66-1.25) mg/dL Est GFR (CKD-EPI)AfAm (>60 ml/min/1.73 sqM) Est GFR (CKD-EPI)NonAf (>60 ml/min/1.73 sqM) Glucose (74-99) mg/dL Plasma Lactic Acid Abdullahi 1.0 (0.7-2.0) mmol/L Calcium (8.4-10.2) mg/dL Total Bilirubin (0.2-1.3) mg/dL AST (17-59) U/L ALT (4-49) U/L Alkaline Phosphatase (38-126) U/L Troponin I <0.012 (0.000-0.034) ng/mL Total Protein (6.3-8.2) g/dL Albumin (3.5-5.0) g/dL Stool Occult Blood Positive (Negative) Blood Type Blood Type Confirm Blood Type Recheck Bld Type Recheck Status Antibody Screen Spec Expiration Date 08/27/20 08/27/20 Range/Units 22:00 22:15 WBC (3.8-10.6) k/uL RBC (4.30-5.90) m/uL Hgb (13.0-17.5) gm/dL Hct (39.0-53.0) % MCV (80.0-100.0) fL MCH (25.0-35.0) pg MCHC (31.0-37.0) g/dL RDW (11.5-15.5) % Plt Count (150-450) k/uL MPV Neutrophils % (Manual) % Band Neuts % (Manual) % Lymphocytes % (Manual) % Monocytes % (Manual) % Eosinophils % (Manual) % Neutrophils # (Manual) (1.3-7.7) k/uL Lymphocytes # (Manual) (1.0-4.8) k/uL Monocytes # (Manual) (0-1.0) k/uL Eosinophils # (Manual) (0-0.7) k/uL Nucleated RBCs (0-0) /100 WBC Manual Slide Review RBC Morphology PT (9.0-12.0) sec INR (<1.2) APTT (22.0-30.0) sec Sodium (137-145) mmol/L Potassium (3.5-5.1) mmol/L Chloride (98-107) mmol/L Carbon Dioxide (22-30) mmol/L Anion Gap mmol/L BUN (9-20) mg/dL Creatinine (0.66-1.25) mg/dL Est GFR (CKD-EPI)AfAm (>60 ml/min/1.73 sqM) Est GFR (CKD-EPI)NonAf (>60 ml/min/1.73 sqM) Glucose (74-99) mg/dL Plasma Lactic Acid Abdullahi (0.7-2.0) mmol/L Calcium (8.4-10.2) mg/dL Total Bilirubin (0.2-1.3) mg/dL AST (17-59) U/L ALT (4-49) U/L Alkaline Phosphatase (38-126) U/L Troponin I (0.000-0.034) ng/mL Total Protein (6.3-8.2) g/dL Albumin (3.5-5.0) g/dL Stool Occult Blood (Negative) Blood Type O Negative Blood Type Confirm O Negative Blood Type Recheck No Previous Record Bld Type Recheck Status CABO Indicated Antibody Screen NEGATIVE Spec Expiration Date 08/30/2020 - 2299 Disposition Decision to Admit Reason: Admit from EC Decision Date: 08/27/20 Decision Time: 23:07 <Jessica Quarles - Last Filed: 08/27/20 23:05> <Anton Underwood - Last Filed: 08/29/20 08:27> Clinical Impression: Upper GI bleed, Left hip pain Disposition: ADMITTED IP TO THIS [facility] Condition: Serious
[2020-08-27 22:31] LABS: HGB 11.1 gm/dL (13.0-17.5); MCH 33.6 pg (25.0-35.0); MCHC 34.7 g/dL (31.0-37.0); MCV 96.9 fL (80.0-100.0); Mean Platelet Volume 8.9; Platelet Count 248 k/uL (150-450); RDW 14.6 % (11.5-15.5); WBC 25.2 k/uL (3.8-10.6)
[2020-08-27 22:42] LABS: Partial Thromboplastin Time 22.6 sec (22.0-30.0); Prothrombin Time 10.3 sec (9.0-12.0)
[2020-08-27 22:47] LABS: Albumin 3.8 g/dL (3.5-5.0); Calcium 9.2 mg/dL (8.4-10.2); Potassium 4.2 mmol/L (3.5-5.1); Total Bilirubin 0.2 mg/dL (0.2-1.3)
[2020-08-27] MEDS ORDERED: NALOXONE 0.4 MG/ML 1 ML VIAL IV PRN (23:02)
[2020-08-27] MEDS ORDERED: ONDANSETRON 4 MG/2 ML VIAL IVP PRN (23:02)
--- NOTE | 2020-08-27 23:08 | XR ---
EXAMINATION TYPE: XR Hip LT and AP Pelvis DATE OF EXAM: 08/27/2020 COMPARISON: NONE HISTORY: Left hip pain TECHNIQUE: 3 views FINDINGS: The pelvic ring appears intact. Proximal left femur and hip joint appear intact. There is n o hip dysplasia. Sacroiliac joints are intact. IMPRESSION: Negative pelvis and left hip exam. No fracture seen.
[2020-08-28 00:13] LABS: Band Neutrophils % 1 %; Eosinophils # (M) 0.25 k/uL (0-0.7); Lymphocytes # (M) 11.59 k/uL (1.0-4.8); Neutrophils % (M) 50 %; Nucleated Red Blood Cells 0 /100 WBC (0-0); Total Cells Counted 100
[2020-08-28] MEDS: HYDROmorphone 0.5 MG/0.5 ML SYRINGE IVP PRN ×5 (01:33→16:21)
[2020-08-28] MEDS: SODIUM CHLORIDE 0.9% 1,000 ML IV SCH ×2 (01:47→15:16)
[2020-08-28] MEDS: ALPRAZolam 1 MG TAB PO SCH ×3 (01:48→19:55)
[2020-08-28] MEDS: NICOTINE 21MG/24HR PATCH TRANSDERM SCH ×2 (01:48→08:38)
[2020-08-28 07:55] LABS: HCT 29.8 % (39.0-53.0); HGB 10.4 gm/dL (13.0-17.5); MCH 33.9 pg (25.0-35.0); Mean Platelet Volume 8.9; Platelet Count 230 k/uL (150-450); RBC 3.07 m/uL (4.30-5.90); RDW 14.7 % (11.5-15.5); WBC 19.1 k/uL (3.8-10.6)
[2020-08-28] MEDS ORDERED: PANTOPRAZOLE 40 MG/10 ML VIAL IV SCH (09:00)
[2020-08-28] MEDS ORDERED: amLODIPine 2.5 MG TAB PO SCH (09:00)
--- NOTE | 2020-08-28 12:28 | P.HPIM ---
History of Present Illness This is a pleasant 60 years old female with past medical history of coronary artery disease status post RCA stenting, hypertension, hyperlipidemia, osteoarthritis, migraine, chronic back and neck pain, asthma . Patient presents because of black stool. Patient has been having left upper lateral thigh pain and tenderness for the week after he pushed a clutch on his new tractor he got. He started developing left hip pain and tenderness, he follow-up with his PCP for his pain which she describes as 12/17, he got 1 steroids muscular injection of hydrocortisone and then continue to on prednisone 10 mg twice a day for 5 days which he finished last Friday. Also he is been taking Motrin 800 mg daily 4 couple days. Since last week patient noticed dark stool, however he had no bowel movement to last Friday which was black. Last night he has another episode of black stool so he got concerned and he decided to come to emergency room. He has some mild stomach upset on and off. But no vomiting. No diarrhea. Also patient denies chest pain or hip pain, he was taking his aspirin and Plavix for new stent placed for him about 3 months ago[address] He sees Dr. Wick as an outpatient.Patient underwent cardiac cath on 05/19/2020 with successful stenting of the RCA with drug-eluting stent. Patient was started then on dual antiplatelet therapy He is a smoker about 1 pack per day. No alcohol or illicit drugs. Patient is counseled to quit.Currently on nicotine patch. He denies depression or suicidal ideation Vitas looks stable, patient is not tachycardic. She has some elevated white cell count of 19.1 compared to yesterday of 25.2. Patient looks like has chronic leukocytosis since March 2020, and even before that with level ranging between 16-18 K Hemoglobin is dropped from 15-16 last admission about 3 months ago down to 10-11 during this admission. BMP and liver enzymes are unremarkable. Troponin is negative less than 0.012. Card first not detected. Occult blood in the stool is negative Hip and pelvic x-ray: Negative exam with no fractures In the emergency room patient was started on a Protonix 40 mg IV twice daily, normal saline at 75 mL/h, GI team were consulted. Currently he is kept on Plavix but aspirin is held. Review of Systems CONSTITUTIONAL: No fever, no malaise, no fatigue. HEENT: No recent visual problems or hearing problems. Denied any sore throat. CARDIOVASCULAR: No orthopnea, PND, no palpitations, no syncope. PULMONARY: No shortness of breath, no cough, no hemoptysis. GASTROINTESTINAL: No diarrhea, no nausea, no vomiting, no abdominal pain. No rmoactive bowel sounds. NEUROLOGICAL: No headaches, no weakness, no numbness. HEMATOLOGICAL: Denies any bleeding or petechiae. GENITOURINARY: Denies any burning micturition, frequency, or urgency. -MUSCULOSKELETAL/RHEUMATOLOGICAL: Denies any joint pain, swelling, or any muscle pain. Except for his left hip as above ENDOCRINE: Denies any polyuria or polydipsia. Past Medical History Past Medical History: Asthma, Coronary Artery Disease (CAD), Hyperlipidemia, Hypertension, Osteoarthritis (OA) Additional Past Medical History / Comment(s): herniated discs back & neck, migraines, constipation (ali), "slight ringing in ears", hx bronchitis, diverticulitis, History of Any Multi-Drug Resistant Organisms: None Reported Past Surgical History: Heart Catheterization With Stent, Hernia Repair Additional Past Surgical History / Comment(s): pain clinic procedures/nerve blocks, three cardiac stent, lesion removed from mouth umbilical, and r&l inguinal Past Anesthesia/Blood Transfusion Reactions: No Reported Reaction Date of Last Stent Placement:: 05/18/2020 Past Psychological History: Anxiety Smoking Status: Current every day smoker Past Alcohol Use History: Occasional Additional Past Alcohol Use History / Comment(s): smokes 1 PPD or less, has smoked for almost 40 yrs Past Drug Use History: None Reported Additional Drug Use History / Comment(s): denies - Past Family History Mother Family Medical History: Cancer, Coronary Artery Disease (CAD) Additional Family Medical History / Comment(s): breast cancer, three stents,. at 78 Medications and Allergies Home Medications Medication Instructions Recorded Confirmed Type Aspirin 81 mg PO HS 12/23/13 08/27/20 History Cyclobenzaprine [Flexeril] 10 mg PO TID PRN 12/23/13 08/27/20 History atenoloL [Tenormin] 25 mg PO HS 12/23/13 08/27/20 History lisinopriL [Prinivil] 20 mg PO HS 30 Days #30 tablet 03/06/17 08/27/20 Rx ALPRAZolam [Xanax] 0.5 - 1 mg PO BID 07/13/18 08/27/20 History Furosemide [Lasix] 20 mg PO Q48H PRN 07/13/18 08/27/20 History Hydrocodone/Acetaminophen [[place] 1 tab PO QID 07/13/18 08/27/20 History 10-325] Nitroglycerin Sl Tabs [Nitrostat] 0.4 mg SL Q5M PRN 04/07/20 08/27/20 History amLODIPine [Norvasc] 2.5 mg PO DAILY 05/16/20 08/27/20 History Atorvastatin [Lipitor] 80 mg PO HS 08/27/20 08/27/20 History Clopidogrel [Plavix] 75 mg PO HS 08/27/20 08/27/20 History Allergies Allergy/AdvReac Type Severity Reaction Status Date / Time bee pollen [Bee Pollen] Allergy Anaphylaxis Verified 08/27/20 22:59 bee venom protein (honey bee) Allergy Anaphylaxis Verified 08/27/20 22:59 codeine Allergy Unknown Verified 08/27/20 22:59 Penicillins Allergy Rash/Hives Verified 08/27/20 22:59 Physical Exam Vitals: Vital Signs Temp Pulse Pulse Resp BP BP Pulse Ox 08/28/20 07:46 98.3 F 82 17 117/65 99 08/28/20 00:51 98.5 F 82 149/57 98 08/28/20 00:07 98 F 79 18 110/74 97 08/27/20 23:07 86 18 106/53 95 08/27/20 22:13 83 18 124/61 98 08/27/20 21:39 98.4 F 86 18 150/66 100 Intake and Output 08/27/20 08/28/20 08/28/20 22:59 06:59 14:59 Other: # Voids 2 Weight 95.254 kg 95.254 kg GENERAL: The patient is alert and oriented x3, not in any acute distress. Well developed, well nourished. HEENT: Pupils are round and equally reacting to light. EOMI. No scleral icterus. No conjunctival pallor. Normocephalic, atraumatic. No pharyngeal erythema. No thyromegaly. CARDIOVASCULAR: S1 and S2 present. No murmurs, rubs, or gallops. PULMONARY: Chest is clear to auscultation, no wheezing or crackles. ABDOMEN: Soft, nontender, nondistended, normoactive bowel sounds. No palpable organomegaly. MUSCULOSKELETAL: No joint swelling or deformity. -EXTREMITIES: No cyanosis, clubbing, or pedal edema. Left hip area pain and te nderness in the lateral side, no rash or deformity or wound. He has some limited to movement for example hip flexion due to pain. NEUROLOGICAL: Gross neurological examination did not reveal any focal deficits. SKIN: No rashes. No petechiae Results CBC & Chem 7: 08/28/20 06:27 08/27/20 22:00 Labs: Abnormal Lab Results - Last 24 Hours (Table) 08/27/20 08/27/20 08/28/20 Range/Units 22:00 22:00 06:27 WBC 25.2 H 19.1 H (3.8-10.6) k/uL RBC 3.30 L 3.07 L (4.30-5.90) m/uL Hgb 11.1 L 10.4 L (13.0-17.5) gm/dL Hct 32.0 L 29.8 L (39.0-53.0) % Neutrophils # (Manual) 12.80 H (1.3-7.7) k/uL Lymphocytes # (Manual) 11.59 H (1.0-4.8) k/uL BUN 28 H (9-20) mg/dL Glucose 112 H (74-99) mg/dL Total Protein 6.0 L (6.3-8.2) g/dL Thrombosis Risk Factor Assmnt - Choose All That Apply Any of the Below Risk Factors Present?: Yes Each Factor Represents 1 point: Obesity (BMI >25) Each Risk Factor Represents 2 Points: Age 61-74 years Thrombosis Risk Factor Assessment Total Risk Factor Score: 3 Thrombosis Risk Factor Assessment Level: Moderate Risk Assessment and Plan Assessment: Acute GI bleed Echo blood loss anemia History of coronary artery disease status post stent to the RCA Hypertension Nicotine dependence Hyperlipidemia Chronic leukocytosis Osteoarthritis line history of migraine Chronic neck and back pain History of asthma, active issue history of anxiety, not in active issue Plan: This is a pleasant 60 years old female who presents with GI bleed. Monitor hemoglobin, continue with Protonix. GI consult continue to hold aspirin until cleared by GI team. Also we will consult orthopedic team for his left hip pain and tenderness with limitation in movement Labs and medication were reviewed.. Continue same treatment. Continue with symptomatic treatment. Resume home medication. Monitor lytes and vitals. DVT and GI prophylaxis. Further recommendations depends on the clinical course of the patient DVT prophylaxis: No anticoagulation in view of GI bleed. Continue with mechanical GI Prophylaxis: Ppi PT/OT: Pending Prognosis is guarded
[2020-08-28 13:22] LABS: HGB 10.8 gm/dL (13.0-17.5); MCH 32.2 pg (25.0-35.0); MCHC 32.7 g/dL (31.0-37.0); MCV 98.4 fL (80.0-100.0); Macrocytosis Slight; Mean Platelet Volume 8.9; Platelet Count 223 k/uL (150-450); RBC 3.35 m/uL (4.30-5.90); RDW 15.1 % (11.5-15.5); WBC 19.8 k/uL (3.8-10.6)
--- NOTE | 2020-08-28 15:48 | P.CONS ---
History of Present Illness - Reason for Consult Consult date: 08/28/20 Upper GI bleed Requesting physician: Peterson Sanderson - Chief Complaint Hip pain and black tarry stools - History of Present Illness This is a pleasant 60-year-old white male who presented to the emergency department with complaints of black tarry stool and hip pain. He has a past medical history that includes coronary artery disease status post stenting 3 his most recent was 05/19/2020, hypertension, hyperlipidemia, osteoarthritis, migraine, chronic back pain and neck pain. The patient states he was having black tarry stools since last Friday, he has a history of constipation and uses [place] she states keeps him regulated. He also states on Friday and stomach starte d hurting and he had a large bowel movement which he states was black and tarry, he also had an other episode of black tarry stool yesterday. He denies any nausea or vomiting or abdominal pain. He has no history of EGD or peptic ulcer disease. He does state he has heartburn at times with gas. He states about a week or more ago he hurt his hip and was on prednisone 10 mg for approximately 5 days, has also been taking Motrin 800 mg 1-2 times a day for the last week. He has chronic pain and has used NSAIDs in the past as well. His last colonoscopy was in April of 2018 by which was incomplete due to tortuous colon, also found to have diverticulosis. He followed by a barium enema which is which was a suboptimal study without constricting lesion in visualized colon, successful passage through sigmoid, fairly moderate sigmoid colonic diverticulosis. WBC 25.2, hemoglobin 11.1, hematocrit 32, platelets 248,000, INR 1.0, total bilirubin 0.2, alkaline phosphatase 85, AST 28, ALT 45. Review of Systems REVIEW OF SYSTEMS: CARDIOPULMONARY: No chest pain or shortness of breath. Gastrointestinal: No abdominal pain. No nausea or vomiting. No hematemesis, coffee-ground emesis. No rectal bleeding. Black tarry stool. GENITOURINARY: No dysuria or hematuria. MUSCULOSKELETAL: Reports normal range of motion., Hip pain. SKIN: No rashes. No jaundice. ENDOCRINE: No chills, fevers. No excessive weight gain or loss. No polydipsia or polyuria. PSYCHIATRIC: Unremarkable. NEUROLOGY: No change in mental status. Denies dizziness, headache. ENT: Vision unremarkable. CONSTITUTIONAL: No recent weight loss. No fever, chills, night sweats. Past Medical History Past Medical History: Asthma, Coronary Artery Disease (CAD), Hyperlipidemia, Hypertension, Osteoarthritis (OA) Additional Past Medical History / Comment(s): herniated discs back & neck, m igraines, constipation (ali), "slight ringing in ears", hx bronchitis, diverticulitis, History of Any Multi-Drug Resistant Organisms: None Reported Past Surgical History: Heart Catheterization With Stent, Hernia Repair Additional Past Surgical History / Comment(s): pain clinic procedures/nerve blocks, three cardiac stent, lesion removed from mouth umbilical, and r&l inguinal Past Anesthesia/Blood Transfusion Reactions: No Reported Reaction Date of Last Stent Placement:: 05/18/2020 Past Psychological History: Anxiety Smoking Status: Current every day smoker Past Alcohol Use History: Occasional Additional Past Alcohol Use History / Comment(s): smokes 1 PPD or less, has smoked for almost 40 yrs Past Drug Use History: None Reported Additional Drug Use History / Comment(s): denies - Past Family History Mother Family Medical History: Cancer, Coronary Artery Disease (CAD) Additional Family Medical History / Comment(s): breast cancer, three stents,. at 78 Medications and Allergies Home Medications Medication Instructions Recorded Confirmed Type Aspirin 81 mg PO HS 12/23/13 08/27/20 History Cyclobenzaprine [Flexeril] 10 mg PO TID PRN 12/23/13 08/27/20 History atenoloL [Tenormin] 25 mg PO HS 12/23/13 08/27/20 History lisinopriL [Prinivil] 20 mg PO HS 30 Days #30 tablet 03/06/17 08/27/20 Rx ALPRAZolam [Xanax] 0.5 - 1 mg PO BID 07/13/18 08/27/20 History Furosemide [Lasix] 20 mg PO Q48H PRN 07/13/18 08/27/20 History Hydrocodone/Acetaminophen [[place] 1 tab PO QID 07/13/18 08/27/20 History 10-325] Nitroglycerin Sl Tabs [Nitrostat] 0.4 mg SL Q5M PRN 04/07/20 08/27/20 History amLODIPine [Norvasc] 2.5 mg PO DAILY 05/16/20 08/27/20 History Atorvastatin [Lipitor] 80 mg PO HS 08/27/20 08/27/20 History Clopidogrel [Plavix] 75 mg PO HS 08/27/20 08/27/20 History Allergies Allergy/AdvReac Type Severity Reaction Status Date / Time bee pollen [Bee Pollen] Allergy Anaphylaxis Verified 08/27/20 22:59 bee venom protein (honey bee) Allergy Anaphylaxis Verified 08/27/20 22:59 codeine Allergy Unknown Verified 08/27/20 22:59 Penicillins Allergy Rash/Hives Verified 08/27/20 22:59 Physical Exam Vitals: Vital Signs Temp Pulse Pulse Resp BP BP Pulse Ox 08/28/20 07:46 98.3 F 82 17 117/65 99 08/28/20 00:51 98.5 F 82 149/57 98 08/28/20 00:07 98 F 79 18 110/74 97 08/27/20 23:07 86 18 106/53 95 08/27/20 22:13 83 18 124/61 98 08/27/20 21:39 98.4 F 86 18 150/66 100 Intake and Output 08/27/20 08/28/20 08/28/20 22:59 06:59 14:59 Other: # Voids 2 Weight 95.254 kg 95.254 kg General appearance: The patient is alert, oriented, appears in no acute distress . HET: Head is normocephalic and atraumatic. Conjunctiva pink. Sclera anicteric. . Neck: Supple without lymphadenopathy. Trachea midline. Heart: S1 S2. Regular rate and rhythm. Lungs: Clear to auscultation. Abdomen: Soft, nontender, nondistended with bowel sounds. No guarding or rigidity. Extremities: Normal skin color and turgor. No pedal edema. Neurological: No focal deficits. Alert and oriented 3. Results CBC & Chem 7: 08/28/20 11:53 08/27/20 22:00 Labs: Abnormal Lab Results - Last 24 Hours (Table) 08/27/20 08/27/20 08/28/20 Range/Units 22:00 22:00 06:27 WBC 25.2 H 19.1 H (3.8-10.6) k/uL RBC 3.30 L 3.07 L (4.30-5.90) m/uL Hgb 11.1 L 10.4 L (13.0-17.5) gm/dL Hct 32.0 L 29.8 L (39.0-53.0) % Neutrophils # (Manual) 12.80 H (1.3-7.7) k/uL Lymphocytes # (Manual) 11.59 H (1.0-4.8) k/uL BUN 28 H (9-20) mg/dL Glucose 112 H (74-99) mg/dL Total Protein 6.0 L (6.3-8.2) g/dL Assessment and Plan (1) Upper GI bleed Narrative/Plan: 60-year-old male who presented to the emergency department with complaints of black tarry stools and hip pain. Patient has recently been taking prednisone 10 mg for 5 days for his hip pain, and ibuprofen 800 mg 1-2 times a day. He has a history also of using NSAIDs for chronic pain. He had a colonoscopy in April 2018 was incomplete due to a tortuous colon, also showed diverticulosis. Patient underwent a cardiac stent placement and May 2020, and is currently on Plavix. Possible etiologies include peptic ulcer disease, gastritis, esophagitis, AVM or other possible etiologies. Patient is agreeable to undergo EGD Current Visit: Yes Status: Acute Code(s): K92.2 - GASTROINTESTINAL HEMORRHAGE, UNSPECIFIED SNOMED Code(s): 92368124 (2) History of coronary artery disease Narrative/Plan: Patient is status post stent 05/22/2020 on Plavix Current Visit: Yes Status: Acute Code(s): Z86.79 - PERSONAL HISTORY OF OTHER DISEASES OF THE CIRCULATORY SYSTEM SNOMED Code(s): 070033889 (3) Left hip pain Narrative/Plan: Patient recently on prednisone and ibuprofen. Orthopedics on consult Current Visit: Yes Status: Acute Code(s): M25.552 - PAIN IN LEFT HIP SNOM ED Code(s): 63158637 Plan: 1. Clear liquid diet, nothing by mouth after midnight 2. Patient may continue on Plavix due to recent stent placement 3. Repeat CBC daily 4. Protonix 40 mg twice a day 5. Will proceed with EGD tomorrow, procedure discussed with patient in detail including risks and benefits. Patient is willing to proceed. Thank you for this consultation, we will continue to follow Dr. Sanchez I agree with the dictator's note, documented as a scribe by Miesha Armstrong.
[2020-08-28] MEDS ORDERED: ALPRAZolam 0.5 MG TAB PO STA (18:24)
[2020-08-28] MEDS: ACETAMINOPHEN TAB 325 MG TAB PO PRN (18:32)
[2020-08-28] MEDS: HYDROmorphone 1 MG/ML 1 ML SYRINGE IVP PRN ×2 (18:32→22:59)
--- NOTE | 2020-08-28 19:08 | P.CNOR ---
<London Hurst - Last Filed: 08/28/20 15:39> History of Present Illness - [facility] Consult date: 08/28/20 Requesting physician: Len E Bri Consult reason: other (left hip pain) History of present illness: 60 year-old male presents to the hospital with black tarry stools in left hip pain. Patient says about 1 week ago he was on his tractor when he pushes clutched down and immediately began having pain along the left lateral upper leg to the mid thigh and hip. He rates his pain as 10/10. He describes this pain as stabbing in nature. Patient says this pain is worse when he is walking. Pain will be alleviated if he stands in one place. Patient says he did she is PCP midweek last week where they did give him a steroid injection into his left hip. Patient says this did help for a few days and he was also given steroid orally to take. Patient did go back to work for a few days during last week and his pain was relieved. The patient says over this past weekend when the steroid was tapered down he began to have left leg pain again. Patient denies any previous history of orthopedic surgeries. He says he does have a history of chronic neck pain in lower back pain for which she has seen pain management doctors for injections. Patient does have a history of right heart cath in May 2020. He is currently on Plavix for this. Patient has any chest pain, fever, shortness of breath, nausea, vomiting. Patient denies any loss of bowel/bladder control. Patient denies any saddle anesthesia. Past Medical History Past Medical History: Asthma, Coronary Artery Disease (CAD), Hyperlipidemia, Hypertension, Osteoarthritis (OA) Additional Past Medical History / Comment(s): herniated discs back & neck, migraines, constipation (ali), "slight ringing in ears", hx bronchitis, diverticulitis, History of Any Multi-Drug Resistant Organisms: None Reported Past Surgical History: Heart Catheterization With Stent, Hernia Repair Additional Past Surgical History / Comment(s): pain clinic procedures/nerve blocks, three cardiac stent, lesion removed from mouth umbilical, and r&l inguinal Past Anesthesia/Blood Transfusion Reactions: No Reported Reaction Date of Last Stent Placement:: 05/18/2020 Past Psychological History: Anxiety Smoking Status: Current every day smoker Past Alcohol Use History: Occasional Additional Past Alcohol Use History / Comment(s): smokes 1 PPD or less, has smoked for almost 40 yrs Past Drug Use History: None Reported Additional Drug Use History / Comment(s): denies - Past Family History Mother Family Medical History: Cancer, Coronary Artery Disease (CAD) Additional Family Medical History / Comment(s): breast cancer, three stents,. at 78 Medications and Allergies Home Medications Medication Instructions Recorded Confirmed Type Aspirin 81 mg PO HS 12/23/13 08/27/20 History Cyclobenzaprine [Flexeril] 10 mg PO TID PRN 12/23/13 08/27/20 History atenoloL [Tenormin] 25 mg PO HS 12/23/13 08/27/20 History lisinopriL [Prinivil] 20 mg PO HS 30 Days #30 tablet 03/06/17 08/27/20 Rx ALPRAZolam [Xanax] 0.5 - 1 mg PO BID 07/13/18 08/27/20 History Furosemide [Lasix] 20 mg PO Q48H PRN 07/13/18 08/27/20 History Hydrocodone/Acetaminophen [[place] 1 tab PO QID 07/13/18 08/27/20 History 10-325] Nitroglycerin Sl Tabs [Nitrostat] 0.4 mg SL Q5M PRN 04/07/20 08/27/20 History amLODIPine [Norvasc] 2.5 mg PO DAILY 05/16/20 08/27/20 History Atorvastatin [Lipitor] 80 mg PO HS 08/27/20 08/27/20 History Clopidogrel [Plavix] 75 mg PO HS 08/27/20 08/27/20 History Allergies Allergy/AdvReac Type Severity Reaction Status Date / Time bee pollen [Bee Pollen] Allergy Anaphylaxis Verified 08/27/20 22:59 bee venom protein (honey bee) Allergy Anaphylaxis Verified 08/27/20 22:59 codeine Allergy Unknown Verified 08/27/20 22:59 Penicillins Allergy Rash/Hives Verified 08/27/20 22:59 Physical Examination Inspection: Negative for any ecchymosis, erythema, calor, open fractures, lesions to the left upper leg. Rest of exam negative Palpation: Significant tenderness to palpation along the left greater trochanter as well as the upper lateral one third of left thigh. Negative for tenderness to palpation of the cervical and thoracic spine. Mild tenderness to palpation along the mid lumbar spine the left side. Negative for any paravertebral tenderness. Rest of exam is nontender to palpation Sensation: Sensation is intact bilaterally, symmetric, equal throughout Range of motion: Left LE - active ROM -> decreased left hip flexion due to pain. During passive range of motion in flexion of right hip right hip is able to be elevated much further and the patient is not much pain. Active ROM- Limited knee flexion and extension due to pain in upper leg. Full range of motion in dorsi and plantarflexion Motor: Left LE -> strength 5/5 in plantar and dorsiflexion. Resisted knee flexion/extension of hip flexion/extension limited due to patient pain Tensioning signs/neurovascular status: Negative Homans bilaterally. Negative clonus upon dorsiflexing feet bilaterally. Negative Delmer's bilaterally. Cap refill below 3 seconds bilaterally in lower extremities. Skin warm to touch in bilateral feet. Pedal pulses intact, 2+ bilaterally. Results - Labs Labs: Abnormal Lab Results - Last 24 Hours (Table) 08/27/20 08/27/20 08/28/20 Range/Units 22:00 22:00 06:27 WBC 25.2 H 19.1 H (3.8-10.6) k/uL RBC 3.30 L 3.07 L (4.30-5.90) m/uL Hgb 11.1 L 10.4 L (13.0-17.5) gm/dL Hct 32.0 L 29.8 L (39.0-53.0) % Neutrophils # (Manual) 12.80 H (1.3-7.7) k/uL Lymphocytes # (Manual) 11.59 H (1.0-4.8) k/uL BUN 28 H (9-20) mg/dL Glucose 112 H (74-99) mg/dL Total Protein 6.0 L (6.3-8.2) g/dL 08/28/20 Range/Units 11:53 WBC 19.8 H (3.8-10.6) k/uL RBC 3.35 L (4.30-5.90) m/uL Hgb 10.8 L (13.0-17.5) gm/dL Hct 33.0 L (39.0-53.0) % Neutrophils # (Manual) (1.3-7.7) k/uL Lymphocytes # (Manual) (1.0-4.8) k/uL BUN (9-20) mg/dL Glucose (74-99) mg/dL Total Protein (6.3-8.2) g/dL H & H 08/27/20 08/28/20 08/28/20 Range/Units 22:00 06:27 11:53 Hgb 11.1 L 10.4 L 10.8 L (13.0-17.5) gm/dL Hct 32.0 L 29.8 L 33.0 L (39.0-53.0) % Coagulation 08/27/20 Range/Units 22:00 INR 1.0 (<1.2) Result Diagrams: 08/28/20 11:53 08/27/20 22:00 Assessment and Plan Assessment: 1. Greater trochanteric pain syndrome 2. Multiple medical comorbidities Plan: 1. Greater trochanteric pain syndrome - potential to consult pain management for possible steroid injection; may start patient on steroids, Flexeril, gabapentin. 2. Appreciate medical management/GI management - patient being prepped for EGD tomorrow due to recent history of black tarry stools 3. Pain management - stable at this time 4. GI ppx/DVT ppx - 5. PT/OT - weightbearing as tolerated; up out of bed during all meals 6. Appreciate consult Time with Patient: Less than 30 <Nam Renee - Last Filed: 08/28/20 19:08> Physical Examination Osteopathic Statement: *. No significant issues noted on an osteopathic struc tural exam other than those noted in the History and Physical/Consult. Results - Labs Labs: Abnormal Lab Results - Last 24 Hours (Table) 08/27/20 08/27/20 08/28/20 Range/Units 22:00 22:00 06:27 WBC 25.2 H 19.1 H (3.8-10.6) k/uL RBC 3.30 L 3.07 L (4.30-5.90) m/uL Hgb 11.1 L 10.4 L (13.0-17.5) gm/dL Hct 32.0 L 29.8 L (39.0-53.0) % Neutrophils # (Manual) 12.80 H (1.3-7.7) k/uL Lymphocytes # (Manual) 11.59 H (1.0-4.8) k/uL BUN 28 H (9-20) mg/dL Glucose 112 H (74-99) mg/dL Total Protein 6.0 L (6.3-8.2) g/dL 08/28/20 Range/Units 11:53 WBC 19.8 H (3.8-10.6) k/uL RBC 3.35 L (4.30-5.90) m/uL Hgb 10.8 L (13.0-17.5) gm/dL Hct 33.0 L (39.0-53.0) % Neutrophils # (Manual) (1.3-7.7) k/uL Lymphocytes # (Manual) (1.0-4.8) k/uL BUN (9-20) mg/dL Glucose (74-99) mg/dL Total Protein (6.3-8.2) g/dL H & H 08/27/20 08/28/20 08/28/20 Range/Units 22:00 06:27 11:53 Hgb 11.1 L 10.4 L 10.8 L (13.0-17.5) gm/dL Hct 32.0 L 29.8 L 33.0 L (39.0-53.0) % Coagulation 08/27/20 Range/Units 22:00 INR 1.0 (<1.2) Result Diagrams: 08/28/20 11:53 08/27/20 22:00
[2020-08-28] MEDS: LACTATED RINGERS 1,000 ML IV SCH (19:53)
[2020-08-28] MEDS: ATORVASTATIN 80 MG TAB PO SCH (19:54)
[2020-08-28] MEDS: CLOPIDOGREL 75 MG TAB PO SCH (19:54)
[2020-08-28] MEDS: atenoloL 25 MG TAB PO SCH ×2 (19:54→19:56)
[2020-08-28] MEDS: PANTOPRAZOLE 40 MG/10 ML VIAL IV SCH (19:55)
[2020-08-29] MEDS: SODIUM CHLORIDE 0.9% 1,000 ML IV SCH ×2 (02:43→19:42)
[2020-08-29] MEDS: HYDROmorphone 1 MG/ML 1 ML SYRINGE IVP PRN ×6 (06:15→21:57)
[2020-08-29] MEDS ORDERED: LIDOCAINE 1% INJ 10MG/ML (20 ML MDV) ONE (08:40)
[2020-08-29] MEDS ORDERED: IV FLUID CONTINUATION 1,000 ML IV ONE ×2 (08:40)
[2020-08-29] MEDS ORDERED: fentaNYL (PF) 50 MCG/ML 2 ML AMP ONE (08:40)
[2020-08-29] MEDS ORDERED: PROPOFOL 10 MG/ML 20 ML VIAL IV ONE (08:40)
[2020-08-29] MEDS ORDERED: MIDAZOLAM 2 MG/2 ML VIAL ONE (08:40)
--- NOTE | 2020-08-29 09:03 | P.PCN ---
Date of Procedure: 08/29/20 Description of Procedure: BRIEF HISTORY: 60-year-old white male who presented to the emergency department with complaints of black tarry stool and hip pain. He has a past medical history that includes coronary artery disease status post stenting 3 his most recent was 05/19/2020, hypertension, hyperlipidemia, osteoarthritis, migraine, chronic back pain and neck pain. The patient states he was having black tarry stools since last Friday, he has a history of constipation and uses [place] she states keeps him regulated. He also states on Friday and stomach started hurting and he had a large bowel movement which he states was black and tarry, he also had an other episode of black tarry stool yesterday. He denies any nausea or vomiting or abdominal pain. He has no history of EGD or peptic ulcer disease. He does state he has heartburn at times with gas. He states about a week or more ago he hurt his hip and was on prednisone 10 mg for approximately 5 days, has also been taking Motrin 800 mg 1-2 times a day for the last week. He has chronic pain and has used NSAIDs in the past as well. His last colonoscopy was in April of 2018 by which was incomplete due to tortuous colon, also found to have diverticulosis. He followed by a barium enema which is which was a suboptimal study without constricting lesion in visualized colon, successful passage through sigmoid, fairly moderate sigmoid colonic diverticulosis. PROCEDURE PERFORMED: Esophagogastroduodenoscopy. PREOPERATIVE DIAGNOSIS: Melena, GI bleed. ESTIMATED BLOOD LOSS: Minimal. IV sedation per anesthesia. PROCEDURE: After informed consent was obtained, the patient was brought into the endoscopy unit. IV sedation was administered by Anesthesia under continuous monitoring. Initially the Olympus GIF-190 video endoscope was inserted into the mouth. Esophagus intubated without any difficulty. It was gradually advanced into the stomach and duodenum and carefully examined. The bulb and the second part of the duodenum were visualized and 2 ulcers in the duodenal sweep measuring 5 mm and 3 mm in size without any active bleeding or high risk stigmata for bleeding were noted. The scope at this time was withdrawn to the stomach, adequately insufflated with air, and upon careful examination, mucosa of the antrum, body, cardia and the fundus appeared normal. The scope was then withdrawn into the esophagus. The GE junction was located at 41 cm from the incisors. The esophagus appeared normal. There were no erosions or ulcerations seen and the patient tolerated the procedure well. No biopsies were taken in the setting of Plavix therapy. IMPRESSION: 1. 2 nonbleeding duodenal ulcers without stigmata for bleeding. 2. No active bleeding or old blood noted. RECOMMENDATIONS: The findings of this examination were discussed with the patient. Okay for cardiac diet. Continue Protonix twice daily. Strict avoidance of all NSAIDs. Okay to continue Plavix therapy. Continue to monitor hemoglobin and hematocrit and for any other signs or symptoms of GI bleeding.
[2020-08-29] MEDS: ALPRAZolam 1 MG TAB PO SCH ×2 (09:07→21:57)
[2020-08-29] MEDS: NICOTINE 21MG/24HR PATCH TRANSDERM SCH (09:07)
[2020-08-29] MEDS: PANTOPRAZOLE 40 MG/10 ML VIAL IV SCH (09:07)
[2020-08-29] MEDS: LIDOCAINE 5% PATCH TOPICAL SCH (09:11)
[2020-08-29 11:06] LABS: HCT 34.4 % (39.0-53.0); MCH 31.9 pg (25.0-35.0); MCV 99.8 fL (80.0-100.0); Macrocytosis Slight; Mean Platelet Volume 8.7; Platelet Count 256 k/uL (150-450); RBC 3.44 m/uL (4.30-5.90); RDW 14.9 % (11.5-15.5); WBC 16.5 k/uL (3.8-10.6)
--- NOTE | 2020-08-29 13:44 | XR ---
EXAMINATION TYPE: XR chest 1V DATE OF EXAM: 08/29/2020 COMPARISON: Chest x-ray 04/07/2020 HISTORY: Leukocytosis, abnormal chest x-ray TECHNIQUE: Single frontal view of the chest is obtained. FINDINGS: Lung volumes are low and the patient is rotated. Aorta is dense. There is no pleural effusi on or pneumothorax seen. Question some minimal patchy density along the left hemidiaphragm similar t o prior exam. The cardiac silhouette size is within normal limits. The osseous structures are intac t, there is thoracic spondylosis. IMPRESSION: There may be some basilar atelectasis or scarring rather than pneumonia.
[2020-08-29] MEDS: ACETAMINOPHEN TAB 325 MG TAB PO PRN (13:58)
[2020-08-29 15:05] LABS: Appearance,Urine Clear (Clear); Bilirubin,Urine Negative (Negative); Blood,Urine Negative (Negative); Color,Urine Yellow; Glucose,Urine (UA) Negative (Negative); Ketones,Urine Negative (Negative); Leukocyte Esterase,Urine Negative (Negative); Nitrite,Urine Negative (Negative); PH, Urine 5.5 (5.0-8.0); Protein,Urine Negative (Negative); Specific Gravity,Urine 1.017 (1.001-1.035); Urobilinogen,Urine <2.0 mg/dL (<2.0)
[2020-08-29] MEDS: LACTATED RINGERS 1,000 ML IV SCH (15:27)
--- NOTE | 2020-08-29 16:20 | P.PN ---
Subjective Progress Note Date: 08/29/20 Principal diagnosis: Greater trochanteric pain syndrome/left hip pain Patient was seen at bedside this afternoon with at bedside. Patient says he had some left foot pain. He denies any trauma/injury to the area. He says this left foot pain has been going on for 3 or 4 years now and sometimes it'll flareup as he points to the lateral and top portion of his foot. Patient says it hurts when he he ambulates. He says he has been following with the ankle/research compliance specialist in the [place] area. Patient says he is also still having left hip pain and not much has changed in regards to that. He says he has been up and able to use the bathroom. Patient denies chest pain, fever, shortness of breath, nausea, vomiting, change in vision. Patient denies saddle anesthesia. Patient denies loss of bowel/bladder control. Objective - Vital Signs Vital signs: Vital Signs Temp 97.9 F 08/29/20 14:07 Pulse 69 08/29/20 14:07 Resp 17 08/29/20 14:07 BP 127/83 08/29/20 14:07 Pulse Ox 99 08/29/20 14:07 Intake & Output 08/28/20 08/29/20 08/29/20 18:59 06:59 18:59 Intake Total 600 100 Output Total 400 Balance 600 -300 Intake: IV 100 Intake, IV Titration 600 Amount Sodium Chloride 0.9% 1, 600 000 ml @ 75 mls/hr IV . [id number] Rx#:[id number] Output: Urine 400 Other: # Voids 3 1 - Exam Inspection: Negative for any ecchymosis, erythema, calor, open fractures, lesions to the left upper leg. Rest of exam negative Palpation: Significant tenderness to palpation along the left greater trochanter as well as the upper lateral one third of left thigh. Negative for tenderness to palpation of the cervical and thoracic spine. Mild tenderness to palpation along the mid lumbar spine the left side. Negative for any paravertebral tenderness. Rest of exam is nontender to palpation Sensation: Sensation is intact bilaterally, symmetric, equal throughout Range of motion: Left LE - active ROM -> decreased left hip flexion due to pain. During passive range of motion in flexion of right hip right hip is able to be elevated much further and the patient is not much pain. Active ROM- Limited knee flexion and extension due to pain in upper leg. Full range of motion in dorsi and plantarflexion Motor: Left LE -> strength 5/5 in plantar and dorsiflexion. Resisted knee flexion/extension of hip flexion/extension limited due to patient pain Tensioning signs/neurovascular status: Negative Homans bilaterally. Negative clonus upon dorsiflexing feet bilaterally. Negative Delmer's bilaterally. Cap refill below 3 seconds bilaterally in lower extremities. Skin warm to touch in bilateral feet. Pedal pulses intact, 2+ bilaterally. - Labs CBC & Chem 7: 08/29/20 10:41 08/27/20 22:00 Labs: Abnormal Lab Results - Last 24 Hours (Table) 08/29/20 08/29/20 Range/Units 10:41 10:41 WBC 16.5 H (3.8-10.6) k/uL RBC 3.44 L (4.30-5.90) m/uL Hgb 11.0 L (13.0-17.5) gm/dL Hct 34.4 L (39.0-53.0) % C-Reactive Protein 2.7 H (<1.0) mg/dL Assessment and Plan Assessment: 1. Greater trochanteric pain syndrome 2. Left foot pain 3. Multiple medical comorbidities 4..duodenal ulcers Plan: 1. Greater trochanteric pain syndrome/left hip pain - control with pain management with [place], gabapentin, Flexeril at this time. We will order an MRI of the hip and pelvis for further evaluation of this hip pain, patient has been having elevated WBC counts. No fever. Patient can follow up with us in the outpatient setting as well. 2. Left foot pain - x-ray ordered to evaluate 3. Appreciate medical management/GI management - EGD performed today showed 2 nonbleeding duodenal ulcers. GI following. Patient on Protonix 4.. Pain management - stable at this time 5. PT/OT - weightbearing as tolerated; up out of bed during all meals 6. Appreciate consult Time with Patient: Less than 30
--- NOTE | 2020-08-29 16:59 | XR ---
Left foot HISTORY: Abnormal physical exam, pain and swelling 3 views the left foot Bone mineralization, joint spaces and alignment are maintained. There is some spurring at the tibiota lar joint. Septic ossific density at the level of the posterior malleolus is thought to be well-corti cated, correlate for point tenderness. IMPRESSION: No fracture or dislocation is evident in the foot, correlate for point tenderness as desc ribed.
--- NOTE | 2020-08-29 19:42 | P.PN ---
Subjective This is a pleasant 60 years old female with past medical history of coronary artery disease status post RCA stenting, hypertension, hyperlipidemia, osteoarthritis, migraine, chronic back and neck pain, asthma . Patient presents because of black stool. Patient has been having left upper lateral thigh pain and tenderness for the last week after he pushed a clutch on his new tractor he got. He started developing left hip pain and tenderness, he follow-up with his PCP for his pain which she describes as 12/17, he got 1 steroids muscular injection of hydrocortisone and then continue to on prednisone 10 mg twice a day for 5 days which he finished last Friday. Also he is been taking Motrin 800 mg daily 4 couple days. Since last week patient noticed dark stool, however he had no bowel movement to last Friday which was black. Last night he has another episode of black stool so he got concerned and he decided to come to emergency room. He has some mild stomach upset on and off. But no vomiting. No diarrhea. Also patient denies chest pain or hip pain, he was taking his aspirin and Plavix for new stent placed for him about 3 months ago[address] He sees Dr. Wick as an outpatient.Patient underwent cardiac cath on 05/19/2020 with successful stenting of the RCA with drug-eluting stent. Patient was started then on dual antiplatelet therapy He is a smoker about 1 pack per day. No alcohol or illicit drugs. Patient is counseled to quit.Currently on nicotine patch. He denies depression or suicidal ideation Vitas looks stable, patient is not tachycardic. She has some elevated white cell count of 19.1 compared to yesterday of 25.2. Patient looks like has chronic leukocytosis since March 2020, and even before that with level ranging between 16-18 K Hemoglobin is dropped from 15-16 last admission about 3 months ago down to 10-11 during this admission. BMP and liver enzymes are unremarkable. Troponin is negative less than 0.012. Card first not detected. Occult blood in the stool is negative Hip and pelvic x-ray: Negative exam with no fractures In the emergency room patient was started on a Protonix 40 mg IV twice daily, normal saline at 75 mL/h, GI team were consulted. Currently he is kept on Plavix but aspirin is held. 08/29/2020 Patient states that his left hip pain is better. No more black stool, actually he does not have bowel movement since yesterday. No other new complaints. Patient movements are not restricted and PT/OT recommended home. Today patient has EGD was showing to note bleeding duodenal ulcers. GI team recommended to continue with Protonix and Plavix and add aspirin. Which is adequate for tonight. Monitor hemoglobin in the morning Orthopedic team are following the patient for left lower extremity pain, further workup is pending. Greater trochanteric pain/bursitis is suspected. Check uric acid in the morning Patient is written well her creatinine is normal. Discontinue IV fluids. Keep monitoring his blood pressure for now. Check CBC and BMP in the morning Review of systems CONSTITUTIONAL: No fever, no malaise, no fatigue. HEENT: No recent visual problems or hearing problems. Denied any sore throat. CARDIOVASCULAR: No orthopnea, PND, no palpitations, no syncope. PULMONARY: No shortness of breath, no cough, no hemoptysis. GASTROINTESTINAL: No diarrhea, no nausea, no vomiting, no abdominal pain. Normoactive bowel sounds. Active Medications Generic Name Dose Route Start Last Admin Trade Name Freq PRN Reason Stop Dose Admin Acetaminophen 650 mg 08/28/20 18:26 08/29/20 13:58 Acetaminophen Tab 325 Mg Tab PO 650 mg Q6HR PRN Administration Fever and/ or Pain Alprazolam 1 mg 08/28/20 01:39 08/29/20 09:07 Alprazolam 1 Mg Tab PO 1 mg BID TYESHA Administration Aspirin 81 mg 08/29/20 21:00 Aspirin 81 Mg PO HS TYESHA Atenolol 25 mg 08/28/20 21:00 08/28/20 19:56 Atenolol 25 Mg Tab PO Not Given HS TYESHA Atorvastatin Calcium 80 mg 08/28/20 21:00 08/28/20 19:54 Atorvastatin 80 Mg Tab PO 80 mg HS TYESHA Administration Clopidogrel Bisulfate 75 mg 08/28/20 21:00 08/28/20 19:54 Clopidogrel 75 Mg Tab PO 75 mg HS TYESHA Administration Cyclobenzaprine HCl 10 mg 08/28/20 01:35 Cyclobenzaprine 10 Mg Tab PO TID PRN Muscle Spasm Hydromorphone HCl 1 mg 08/28/20 18:22 08/29/20 18:21 Hydromorphone 1 Mg/Ml 1 Ml Syringe IVP 1 mg Q3HR PRN Administration Moderate Pain Lactated Ringer's 1,000 mls @ 20 mls/hr 08/28/20 18:45 08/29/20 15:27 Lactated Ringers IV Not Given .Q24H TYESHA Lidocaine 1 patch 08/29/20 09:00 08/29/20 09:11 Lidocaine 5% Patch TOPICAL 1 patch DAILY TYESHA Administration Naloxone HCl 0.2 mg 08/27/20 23:02 Naloxone 0.4 Mg/Ml 1 Ml Vial IV Q2M PRN Opioid Reversal Nicotine 1 patch 08/28/20 01:41 08/29/20 09:07 Nicotine 21mg/24hr Patch TRANSDERM 1 patch DAILY TYESHA Administration Ondansetron HCl 4 mg 08/27/20 23:02 08/28/20 15:24 Ondansetron 4 Mg/2 Ml Vial IVP 4 mg Q8HR PRN Administration Nausea And Vomiting Pantoprazole Sodium 40 mg 08/30/20 07:30 Pantoprazole 40 Mg Tablet PO AC-BID TYESHA Objective - Vital Signs Vital signs: Vital Signs Temp 97.9 F 08/29/20 14:07 Pulse 69 08/29/20 14:07 Resp 17 08/29/20 14:07 BP 127/83 08/29/20 14:07 Pulse Ox 99 08/29/20 14:07 Intake & Output 08/29/20 08/29/20 08/30/20 06:59 18:59 06:59 Intake Total 600 100 Output Total 400 Balance 600 -300 Intake: IV 100 Intake, IV Titration 600 Amount Sodium Chloride 0.9% 1, 600 000 ml @ 75 mls/hr IV . [id number] TYESHA Rx#:[id number] Output: Urine 400 Other: # Voids 2 - Exam This is a pleasant 60 years old female with past medical history of coronary artery disease status post RCA stenting, hypertension, hyperlipidemia, osteoarthritis, migraine, chronic back and neck pain, asthma . Patient presents because of black stool. Patient has been having left upper lateral thigh pain and tenderness for the last week after he pushed a clutch on his new tractor he got. He started developing left hip pain and tenderness, he follow-up with his PCP for his pain which she describes as 10/10, he got 1 steroids muscular injection of hydrocortisone and then continue to on prednisone 10 mg twice a day for 5 days w hich he finished last Friday. Also he is been taking Motrin 800 mg daily 4 couple days. Since last week patient noticed dark stool, however he had no bowel movement to last Friday which was black. Last night he has another episode of black stool so he got concerned and he decided to come to emergency room. He has some mild stomach upset on and off. But no vomiting. No diarrhea. Also patient denies chest pain or hip pain, he was taking his aspirin and Plavix for new stent placed for him about 3 months ago[address] He sees Dr. Wick as an outpatient.Patient underwent cardiac cath on 05/19/2020 with successful stenting of the RCA with drug-eluting stent. Patient was started then on dual antiplatelet therapy He is a smoker about 1 pack per day. No alcohol or illicit drugs. Patient is counseled to quit.Currently on nicotine patch. He denies depression or suicidal ideation Vitas looks stable, patient is not tachycardic. She has some elevated white cell count of 19.1 compared to yesterday of 25.2. Patient looks like has chronic leukocytosis since March 2020, and even before that with level ranging between 16-18 K Hemoglobin is dropped from 15-16 last admission about 3 months ago down to 10-11 during this admission. BMP and liver enzymes are unremarkable. Troponin is negative less than 0.012. Card first not detected. Occult blood in the stool is negative Hip and pelvic x-ray: Negative exam with no fractures In the emergency room patient was started on a Protonix 40 mg IV twice daily, normal saline at 75 mL/h, GI team were consulted. Currently he is kept on Plavix but aspirin is held. 08/29/2020 Patient states that his left hip pain is better today. He had no bowel movement since admission so he can safely is black stool. He is hemodynamically stable. He underwent EGD today showing 2 nonbleeding duodenal ulcer. No other complaint of the GI tract. Other than that he is hemodynamically stable.. WBC is 16 K and patient with chronic leukocytosis. Hemoglobin stable at 11. He is a still on a Protonix IV twice daily. This Space Toradol - Labs CBC & Chem 7: 08/29/20 10:41 08/27/20 22:00 Labs: Abnormal Lab Results - Last 24 Hours (Table) 08/29/20 08/29/20 Range/Units 10:41 10:41 WBC 16.5 H (3.8-10.6) k/uL RBC 3.44 L (4.30-5.90) m/uL Hgb 11.0 L (13.0-17.5) gm/dL Hct 34.4 L (39.0-53.0) % C-Reactive Protein 2.7 H (<1.0) mg/dL Assessment and Plan Assessment: Acute GI bleed secondary to to nonbleeding duodenal ulcers. No further bleeding and GI team cleared the patient for aspirin and Plavix. Acute blood loss anemia left hip pain suspected to be greater trochanteric pain/bursitis, secondary to blunt trauma while he was pressing on his tractor clutch. No fracture and orthopedic on the case Chronic leukocytosis History of coronary artery disease status post stent to the RCA Hypertension Nicotine dependence Hyperlipidemia Osteoarthritis line history of migraine Chronic neck and back pain History of asthma, active issue history of anxiety, not in active issue Plan: This is a pleasant 60 years old female who presents with GI bleed. Monitor hemoglobin, continue with Protonix. GI consult Restart aspirin and continue with Plavix per GI team. Follow-up with orthopedic team for his left hip pain , further workup is pending Labs and medication were reviewed.. Continue same treatment. Continue with symptomatic treatment. Resume home medication. Monitor lytes and vitals. DVT and GI prophylaxis. Further recommendations depends on the clinical course of the patient DVT prophylaxis: No anticoagulation in view of GI bleed. Continue with mechanical GI Prophylaxis: Ppi PT/OT: Recommending home Prognosis is guarded
[2020-08-29] MEDS: CLOPIDOGREL 75 MG TAB PO SCH (21:57)
[2020-08-29] MEDS: ATORVASTATIN 80 MG TAB PO SCH (21:57)
[2020-08-29] MEDS: ASPIRIN 81 MG PO SCH (21:57)
[2020-08-29] MEDS: CYCLOBENZAPRINE 10 MG TAB PO PRN (21:57)
[2020-08-29] MEDS: atenoloL 25 MG TAB PO SCH (22:06)
[2020-08-30] MEDS: NICOTINE 21MG/24HR PATCH TRANSDERM SCH (07:47)
[2020-08-30] MEDS: LIDOCAINE 5% PATCH TOPICAL SCH (07:47)
[2020-08-30] MEDS: ALPRAZolam 1 MG TAB PO SCH ×2 (07:47→21:02)
[2020-08-30] MEDS: PANTOPRAZOLE 40 MG TABLET PO SCH ×2 (07:47→16:54)
[2020-08-30] MEDS: HYDROmorphone 1 MG/ML 1 ML SYRINGE IVP PRN ×2 (07:52→21:03)
--- NOTE | 2020-08-30 08:14 | P.PN ---
Subjective This is a pleasant 60 years old female with past medical history of coronary artery disease status post RCA stenting, hypertension, hyperlipidemia, osteoarthritis, migraine, chronic back and neck pain, asthma . Patient presents because of black stool. Patient has been having left upper lateral thigh pain and tenderness for the last week after he pushed a clutch on his new tractor he got. He started developing left hip pain and tenderness, he follow-up with his PCP for his pain which she describes as 12/17, he got 1 steroids muscular injection of hydrocortisone and then continue to on prednisone 10 mg twice a day for 5 days which he finished last Friday. Also he is been taking Motrin 800 mg daily 4 couple days. Since last week patient noticed dark stool, however he had no bowel movement to last Friday which was black. Last night he has another episode of black stool so he got concerned and he decided to come to emergency room. He has some mild stomach upset on and off. But no vomiting. No diarrhea. Also patient denies chest pain or hip pain, he was taking his aspirin and Plavix for new stent placed for him about 3 months ago[address] He sees Dr. Wick as an outpatient.Patient underwent cardiac cath on 05/19/2020 with successful stenting of the RCA with drug-eluting stent. Patient was started then on dual antiplatelet therapy He is a smoker about 1 pack per day. No alcohol or illicit drugs. Patient is counseled to quit.Currently on nicotine patch. He denies depression or suicidal ideation Vitas looks stable, patient is not tachycardic. She has some elevated white cell count of 19.1 compared to yesterday of 25.2. Patient looks like has chronic leukocytosis since March 2020, and even before that with level ranging between 16-18 K Hemoglobin is dropped from 15-16 last admission about 3 months ago down to 10-11 during this admission. BMP and liver enzymes are unremarkable. Troponin is negative less than 0.012. Card first not detected. Occult blood in the stool is negative Hip and pelvic x-ray: Negative exam with no fractures In the emergency room patient was started on a Protonix 40 mg IV twice daily, normal saline at 75 mL/h, GI team were consulted. Currently he is kept on Plavix but aspirin is held. 08/29/2020 Patient states that his left hip pain is better. No more black stool, actually he does not have bowel movement since yesterday. No other new complaints. Patient movements are not restricted and PT/OT recommended home. Today patient has EGD was showing to note bleeding duodenal ulcers. GI team recommended to continue with Protonix and Plavix and add aspirin. Which is adequate for tonight. Monitor hemoglobin in the morning Orthopedic team are following the patient for left lower extremity pain, further workup is pending. Greater trochanteric pain/bursitis is suspected. Check uric acid in the morning Patient is written well her creatinine is normal. Discontinue IV fluids. Keep monitoring his blood pressure for now. Check CBC and BMP in the morning 08/30/2020 Patient states that his pain in the left hip greater trochanteric area is still there but is improving, now he can touch its which she could not do that when he came to the hospital. However yesterday he started complaining from left ankle pain which he states is chronic, at least that happened 2 weeks ago with no trauma. X-ray reported by orthopedic team show no fracture or dislocation. Also is telling me he has a spine issue all his life, he broke his back at age 32, and later on in her 40s he injured is neck twice, one time it wasn't sport accident. Patient is afebrile. He Is currently taking Dilaudid 1 mg every 3 hours on the top of his Xanax 1 mg twice daily. He told me he takes Rifton 10-325 mg at home which is ordered, I explained the patient will need to taper down his Dilaudid as his risk of infections and a sterile explained for him, he agreed to bring it down. We going to lower the frequency to every 6 hours or 0.5 mg every 3. his Rifton is reordered. MRI of the left hip still pending. Orthopedic team on the case patient started on aspirin last night and he tolerates that well with no abdominal pain or vomiting or bleeding in his stool. Repeat hemoglobin is pending. EGD showed nonbleeding duodenal ulcers. Patient kept on Protonix twice daily Also he is on aspirin and Plavix. Patient is with chronic leukocytosis, in 12/2013 it was 11.8 elevated, and 02/2017 this was sent count was 12.9-15.5. Later came down to 9.5. On 03/2020 was 18.7 K, and 05/2020 it was 16.5 K. Today it is also 16.5 K. Patient educated about his white cell count elevated. He is concerned. 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 in 2 weeks after and he agrees to call and make is on appointments Objective - Vital Signs Vital signs: Vital Signs Temp 98.3 F 08/30/20 07:27 Pulse 61 08/30/20 07:27 Resp 19 08/30/20 07:27 BP 105/65 08/30/20 07:27 Pulse Ox 98 08/30/20 07:27 Intake & Output 08/29/20 08/30/20 08/30/20 18:59 06:59 18:59 Intake Total 100 Output Total 400 700 Balance -300 -700 Intake: IV 100 Output: Urine 400 700 Other: # Voids 2 - Exam This is a pleasant 60 years old female with past medical history of coronary artery disease status post RCA stenting, hypertension, hyperlipidemia, o steoarthritis, migraine, chronic back and neck pain, asthma . Patient presents because of black stool. Patient has been having left upper lateral thigh pain and tenderness for the last week after he pushed a clutch on his new tractor he got. He started developing left hip pain and tenderness, he follow-up with his PCP for his pain which she describes as 10/10, he got 1 steroids muscular injection of hydrocortisone and then continue to on prednisone 10 mg twice a day for 5 days which he finished last Friday. Also he is been taking Motrin 800 mg daily 4 couple days. Since last week patient noticed dark stool, however he had no bowel movement to last Friday which was black. Last night he has another episode of black stool so he got concerned and he decided to come to emergency room. He has some mild stomach upset on and off. But no vomiting. No diarrhea. Also patient denies chest pain or hip pain, he was taking his aspirin and Plavix for new stent placed for him about 3 months [address] He sees Dr. Wick as an outpatient.Patient underwent cardiac cath on 05/19/2020 with successful stenting of the RCA with drug-eluting stent. Patient was started then on dual antiplatelet therapy He is a smoker about 1 pack per day. No alcohol or illicit drugs. Patient is counseled to quit.Currently on nicotine patch. He denies depression or suicidal ideation Vitas looks stable, patient is not tachycardic. She has some elevated white cell count of 19.1 compared to yesterday of 25.2. Patient looks like has chronic leukocytosis since March 2020, and even before that with level ranging between 16-18 K Hemoglobin is dropped from 15-16 last admission about 3 months ago down to 10-11 during this admission. BMP and liver enzymes are unremarkable. Troponin is negative less than 0.012. Card first not detected. Occult blood in the stool is negative Hip and pelvic x-ray: Negative exam with no fractures In the emergency room patient was started on a Protonix 40 mg IV twice daily, normal saline at 75 mL/h, GI team were consulted. Currently he is kept on Plavix but aspirin is held. 08/29/2020 Patient states that his left hip pain is better today. He had no bowel movement since admission so he can safely is black stool. He is hemodynamically stable. He underwent EGD today showing 2 nonbleeding duodenal ulcer. No other complaint of the GI tract. Other than that he is hemodynamically stable.. WBC is 16 K and patient with chronic leukocytosis. Hemoglobin stable at 11. He is a still on a Protonix IV twice daily. This Space Toradol - Labs CBC & Chem 7: 08/29/20 10:41 08/27/20 22:00 Labs: Abnormal Lab Results - Last 24 Hours (Table) 08/29/20 08/29/20 Range/Units 10:41 10:41 WBC 16.5 H (3.8-10.6) k/uL RBC 3.44 L (4.30-5.90) m/uL Hgb 11.0 L (13.0-17.5) gm/dL Hct 34.4 L (39.0-53.0) % C-Reactive Protein 2.7 H (<1.0) mg/dL Assessment and Plan Assessment: Acute GI bleed secondary to to nonbleeding duodenal ulcers. No further bleeding and GI team cleared the patient for aspirin and Plavix. Acute blood loss anemia left hip pain suspected to be greater trochanteric pain/bursitis, secondary to blunt trauma while he was pressing on his tractor clutch. No fracture and orthopedic on the case Chronic leukocytosis Chronic spine disease of the cervical spine, chronic low back pain, also left ankle pain History of coronary artery disease status post stent to the RCA Hypertension Nicotine dependence Hyperlipidemia Osteoarthritis line history of migraine Chronic neck and back pain History of asthma, active issue history of anxiety, not in active issue Plan: This is a pleasant 60 years old female who presents with GI bleed. Monitor hemoglobin, continue with Protonix. GI consult. Continue with Protonix. Restarted on aspirin and Plavix. Follow-up with GI as an outpatient Follow-up MRI of the hip. Orthopedic team on the case Pain management, try to wean the patient off IV narcotics Labs and medication were reviewed.. Continue same treatment. Continue with symptomatic treatment. Resume home medication. Monitor lytes and vitals. DVT and GI prophylaxis. Further recommendations depends on the clinical course of the patient DVT prophylaxis: No heparin in view of GI bleed. Continue with mechanical And aspirin and Plavix GI Prophylaxis: Ppi PT/OT: Recommending home Prognosis is guarded
--- NOTE | 2020-08-30 08:56 | P.PN ---
Subjective Progress Note Date: 08/30/20 Principal diagnosis: Anemia, upper GI bleed Seen and examined lying in bed. Denies any abdominal pain, nausea, or vomiting. He underwent an EGD yesterday which showed 2 nonbleeding duodenal ulcers without high risk stigmata for bleeding. He denies any signs or symptoms of GI bleed currently. Yesterday's hemoglobin was stable at 11.0. Pending results today. Objective - Vital Signs Vital signs: Vital Signs Temp 98.3 F 08/30/20 07:27 Pulse 61 08/30/20 07:27 Resp 19 08/30/20 07:27 BP 105/65 08/30/20 07:27 Pulse Ox 98 08/30/20 07:27 Intake & Output 08/29/20 08/30/20 08/30/20 18:59 06:59 18:59 Intake Total 100 Output Total 400 700 Balance -300 -700 Intake: IV 100 Output: Urine 400 700 Other: # Voids 2 - Exam General appearance: The patient is alert, oriented, appears in no acute distress. HET: Head is normocephalic and atraumatic. Conjunctiva pink. Sclera anicteric. Neck: Supple without lymphadenopathy. Abdomen: Soft, nontender, nondistended with bowel sounds. No guarding or rigidity. Extremities: Normal skin color and turgor. No pedal edema Skin: No rashes, no jaundice Neurological: No focal deficits. Alert and oriented 3. - Labs CBC & Chem 7: 08/30/20 05:37 08/27/20 22:00 Labs: Abnormal Lab Results - Last 24 Hours (Table) 08/29/20 08/29/20 Range/Units 10:41 10:41 WBC 16.5 H (3.8-10.6) k/uL RBC 3.44 L (4.30-5.90) m/uL Hgb 11.0 L (13.0-17.5) gm/dL Hct 34.4 L (39.0-53.0) % C-Reactive Protein 2.7 H (<1.0) mg/dL Assessment and Plan (1) Upper GI bleed Narrative/Plan: 60-year-old male who presented to the emergency department with complaints of black tarry stools and hip pain. Patient has recently been taking prednisone 10 mg for 5 days for his hip pain, and ibuprofen 800 mg 1-2 times a day. He has a history also of using NSAIDs for chronic pain. He had a colonoscopy in April 2018 was incomplete due to a tortuous colon, also showed diverticulosis. Patient underwent a cardiac stent placement and May 2020, and is currently on Plavix. Possible etiologies include peptic ulcer disease, gastritis, esophagitis, AVM or other possible etiologies. Patient is agreeable to undergo EGD Patient underwent EGD with findings including 2 nonbleeding duodenal ulcers without high risk stigmata for bleeding Current Visit: Yes Status: Acute Code(s): K92.2 - GASTROINTESTINAL HEMORRHAGE, UNSPECIFIED SNOMED Code(s): 88988463 (2) History of coronary artery disease Narrative/Plan: Patient is status post stent 05/22/2020 on Plavix Current Visit: Yes Status: Acute Code(s): Z86.79 - PERSONAL HISTORY OF OTHER DISEASES OF THE CIRCULATORY SYSTEM SNOMED Code(s): 828782244 (3) Left hip pain Narrative/Plan: Patient recently on prednisone and ibuprofen. Orthopedics on consult Current Visit: Yes Status: Acute Code(s): M25.552 - PAIN IN LEFT HIP SNOMED Code(s): 99493037 Plan: 1. Diet as tolerated 2. Patient may continue on Plavix due to recent stent placement 3. Repeat CBC daily 4. Protonix 40 mg twice a day 5. Patient status post EGD 6. Avoid NSAIDs Thank you for this consultation, patient is cleared by gastroenterology for discharge if hemoglobin stable. Dr. Sanchez I agree with the dictator's note, documented as a scribe by Miesha Armstrong.
[2020-08-30 09:24] LABS: HCT 29.9 % (39.6-50.0); HGB 9.6 g/dL (13.0-17.0); MCH 32.3 pg (27.0-32.0); MCHC 32.1 g/dL (32.0-37.0); MCV 100.7 fL (80.0-97.0); Mean Platelet Volume 11.6 fL (9.5-12.2); Platelet Count 239 X 10*3/uL (140-440); RBC 2.97 X 10*6/uL (4.40-5.60); RDW 14.8 % (11.5-14.5); WBC 14.07 X 10*3/uL (4.50-10.00)
[2020-08-30 11:12] LABS: Basophils # (A) 0.06 X 10*3/uL (0.00-0.10); Basophils % (A) 0.4 %; Eosinophils # (A) 0.22 X 10*3/uL (0.04-0.35); Eosinophils % (A) 1.6 %; Lymphocytes # (A) 6.17 X 10*3/uL (0.90-5.00); Lymphocytes % (A) 43.9 %; Monocytes # (A) 1.02 X 10*3/uL (0.20-1.00); Monocytes % (A) 7.2 %; Neutrophils # (A) 6.53 X 10*3/uL (1.80-7.70); Neutrophils % (A) 46.4 %
[2020-08-30] MEDS: ACETAMINOPHEN TAB 325 MG TAB PO PRN (11:30)
[2020-08-30] MEDS: HYDROcodone/APAP 10-325MG 1 EACH TAB PO PRN ×2 (11:30→16:59)
[2020-08-30] MEDS: CYCLOBENZAPRINE 10 MG TAB PO PRN ×2 (11:30→21:03)
--- NOTE | 2020-08-30 12:05 | P.PN ---
Subjective Progress Note Date: 08/30/20 Principal diagnosis: Left hip trochanteric bursitis, left foot pain, leukocytosis Patient was evaluated today, his [facility] chair. He notes that the pain in the left hip is slightly improved. Patient did have the MRI pelvis today, we are waiting for report from radiology. X-rays were also done of the left foot yesterday, there were no acute fractures or dislocations. According to internal medicine's note, patient does have a history of previous elevated white blood cell count with no acute medical processes. They're recommending follow-up with hematology in the next 1-2 weeks for recheck. Objective - Vital Signs Vital signs: Vital Signs Temp 98.3 F 08/30/20 07:27 Pulse 61 08/30/20 07:27 Resp 19 08/30/20 07:27 BP 105/65 08/30/20 07:27 Pulse Ox 98 08/30/20 07:27 Intake & Output 08/29/20 08/30/20 08/30/20 18:59 06:59 18:59 Intake Total 100 Output Total 400 700 Balance -300 -700 Intake: IV 100 Output: Urine 400 700 Other: # Voids 2 - Exam Left lower extremity: Mild tenderness with palpation in the greater trochanter region and peritrochanteric region of the left lower extremity, there is no obvious skin changes, this including erythema or soft tissue swelling Patient is nontender with palpation of the lower leg, this including the knee. There is no knee effusion present. He has full extension and flexion of the knee. Calf is soft, no tenderness with palpation No obvious soft tissue changes are noted throughout the left foot, he has mild tenderness with palpation on the dorsum of the midfoot. Plantar flexion, dorsiflexion, EHL, FHL are intact. His sensory exam to light touch throughout the extremity is intact. His dorsalis pedis pulses 2+ Logroll maneuver the hip reproduces no significant groin pain Range of motion, he has full extension and flexion of the knee. Hip flexion does reproduce some pain in the greater trochanteric region. - Labs CBC & Chem 7: 08/30/20 05:37 08/27/20 22:00 Labs: Abnormal Lab Results - Last 24 Hours (Table) 08/29/20 08/30/20 Range/Units 10:41 05:37 WBC 14.07 H (4.50-10.00) X 10*3/uL RBC 2.97 L (4.40-5.60) X 10*6/uL Hgb 9.6 L (13.0-17.0) g/dL Hct 29.9 L (39.6-50.0) % MCV 100.7 H (80.0-97.0) fL MCH 32.3 H (27.0-32.0) pg RDW 14.8 H (11.5-14.5) % Immature Gran # 0.07 H (0.00-0.04) X 10*3/uL Lymphocytes # 6.17 H (0.90-5.00) X 10*3/uL Monocytes # 1.02 H (0.20-1.00) X 10*3/uL C-Reactive Protein 2.7 H (<1.0) mg/dL Assessment and Plan Assessment: Left hip pain Left hip greater trochanteric bursitis Elevated white count Left foot pain Other medical comorbidities Plan: Awaiting report from radiology of the pelvis MRI. Will discuss results and images with Dr. Renee. With regards to the left foot, there is no acute fractures or dislocations present. Recommend follow-up in the outpatient setting for recheck and possible referral to foot/ankle orthopedic surgeon. Recommend weight-bear as tolerated GI and DVT prophylaxis per primary medical service Pain control, continue with current medications Further recommendations to follow Time with Patient: Less than 30
--- NOTE | 2020-08-30 12:40 | MR ---
MR pelvis with and without contrast HISTORY: Left hip pain, elevated white blood cell count Multiplanar multisequence and postcontrast images obtained through the pelvis with small [id number] w images obtained to the left hip. Patient received 10 cc Gadavist IV. Correlation to plain film dated 08/27/2020 Along the level of the insertion of the adductor joo tendon there is abnormal increased signal on T2-weighted sequences, some focal areas of low signal on T1 and T2-weighted sequences are present seb r the level of the expected insertion on the posterior aspect of the proximal left femur, calcificati on is noted on plain film at this level. There is some enhancement on contrast administration at this level. The entire area is not seen on precontrast images due to [id number]. Some probable cortica l regularity present on axial image #8 and 9 postcontrast at this level, some local probable reactive signal changes are likely. There is no focal fluid collection. Bone marrow signal is otherwise maint ained. Gluteus medius and minimus show expected insertions on the greater trochanter. Degenerative di sc changes present in the lower lumbar spine. No evident joint effusion. No evident fracture or dislo cation. IMPRESSION: Findings suggest tear at the insertion of the adductor joo tendon, there may be a comp onent of calcific tendinitis. MRI through the remainder of the proximal femur could be performed for additional evaluation limitations as described.
[2020-08-30 14:15] LABS: Anion Gap 5.1 mmol/L (4.00-12.00); BUN/Creat Ratio 18.75 Ratio (12.00-20.00); Calcium 8.4 mg/dL (8.7-10.3); Carbon Dioxide 24.9 mmol/L (21.6-31.8); Non-African American GFR(CKD) 95.7 (60.0-200.0); Potassium 4.2 mmol/L (3.5-5.5)
--- NOTE | 2020-08-30 16:02 | P.PN ---
Progress Note - Text Progress Note Date: 08/30/20 I reviewed JILLIAN Jason's note from today and I agree. After reviewing the MRI my attending surgeon, Dr. Renee, and reading the MRI report on the pelvis there is a tear in the insertion site of the adductor joo muscle. I did discuss the finding with the patient's , while the patient was sleeping. At this time no surgical intervention is recommended. Rest, ice area as needed. Protected weightbearing as needed. At this time patient does not need any urgent surgical intervention from an orthopedic standpoint. Patient is orthopedically stable at this time and is ready for discharge from an orthopedic standpoint. We do recommend patient to follow-up in the outpatient setting in about 1 week. Continue oral pain medications as needed
[2020-08-30] MEDS: CLOPIDOGREL 75 MG TAB PO SCH (21:02)
[2020-08-30] MEDS: ATORVASTATIN 80 MG TAB PO SCH (21:02)
[2020-08-30] MEDS: ASPIRIN 81 MG PO SCH (21:02)
[2020-08-30] MEDS: atenoloL 25 MG TAB PO SCH (21:03)
[2020-08-30] MEDS ORDERED: HYDROmorphone 1 MG/ML 1 ML SYRINGE IVP PRN (21:56)
[2020-08-31] MEDS ORDERED: HYDROmorphone 0.5 MG/0.5 ML SYRINGE IVP PRN (07:00)
[2020-08-31 08:16] VITALS: BP 105/64; PULSE 59; RESP 18; TEMP 98.1
[2020-08-31] MEDS: LIDOCAINE 5% PATCH TOPICAL SCH (08:18)
[2020-08-31] MEDS: PANTOPRAZOLE 40 MG TABLET PO SCH (08:18)
[2020-08-31] MEDS: ALPRAZolam 1 MG TAB PO SCH (08:18)
[2020-08-31] MEDS: NICOTINE 21MG/24HR PATCH TRANSDERM SCH (08:18)
[2020-08-31] MEDS: HYDROcodone/APAP 10-325MG 1 EACH TAB PO PRN (08:20)
[2020-08-31 09:11] LABS: Basophils # (A) 0.07 X 10*3/uL (0.00-0.10); Basophils % (A) 0.5 %; Eosinophils # (A) 0.21 X 10*3/uL (0.04-0.35); Eosinophils % (A) 1.5 %; HCT 30.2 % (39.6-50.0); HGB 9.9 g/dL (13.0-17.0); Lymphocytes # (A) 6.64 X 10*3/uL (0.90-5.00); Lymphocytes % (A) 46.5 %; MCH 32.7 pg (27.0-32.0); MCHC 32.8 g/dL (32.0-37.0); MCV 99.7 fL (80.0-97.0); Mean Platelet Volume 11.4 fL (9.5-12.2); Monocytes # (A) 0.97 X 10*3/uL (0.20-1.00); Monocytes % (A) 6.8 %; Neutrophils # (A) 6.31 X 10*3/uL (1.80-7.70); Neutrophils % (A) 44.2 %; Platelet Count 255 X 10*3/uL (140-440); RBC 3.03 X 10*6/uL (4.40-5.60); RDW 14.9 % (11.5-14.5); WBC 14.27 X 10*3/uL (4.50-10.00)
--- NOTE | 2020-08-31 15:00 | P.DS ---
Providers Date of admission: 08/29/20 16:55 Attending physician: Peterson Sanderson Consults: 08/27/20 23:03 Consult Physician Routine Consulting Provider: Gavi Sarkar Consult Reason/Comments: Upper GI bleed Do you want consulting provider notified?: Yes 08/28/20 12:21 Consult Physician Urgent Consulting Provider: Nam Renee Consult Reason/Comments: left hip pain Do you want consulting provider notified?: Yes 08/31/20 08:25 Consult Physician Urgent Consulting Provider: Ollie Buckner Consult Reason/Comments: pain management Do you want consulting provider notified?: Yes Primary care physician: Charline Vann Hospital Course: Diagnoses: Acute GI bleed secondary to to nonbleeding duodenal ulcers, secondary to excessive NSAIDs and steroid use. No further bleeding and GI team cleared the patient for discharge on aspirin and Plavix (recent stent in 3 months ago). Acute blood loss anemia , hemoglobin is stable upon discharge left hip pain secondary to adductor joo muscle tear, secondary to blunt trauma while he was pressing on his tractor clutch. No fracture, and orthopedic team recommended no surgery but pain management and follow-up as an outpatient Chronic leukocytosis , he is refered to catia designer as outpatient, patient informed and he agrees to call in the Appointments Chronic spine disease of the cervical spine, chronic low back pain, also left ankle pain History of coronary artery disease status post stent to the RCA Hypertension Nicotine dependence Hyperlipidemia Osteoarthritis line history of migraine Chronic neck and back pain History of asthma, active issue history of anxiety, not in active issue Hospital course: This is a pleasant 60 years old female with past medical history of coronary artery disease status post RCA stenting recently about 3 months ago , hypertension, hyperlipidemia, osteoarthritis, migraine, chronic back and neck pain, asthma . Patient presents because of black stool. Patient has been having left hip pain and tenderness for the last week after he pushed a clutch on his new tractor he got. he followed-up with his PCP for his pain which she describes as 10/10, he got 1 steroids muscular injection of hydrocortisone and then continue to on prednisone 10 mg twice a day for 5 days which he finished last Friday. Also he is been taking Motrin 800 mg daily 4 couple days. Since last week patient noticed dark stool, however he had no bowel movement to last Friday which was black. Last night he has another episode of black stool so he got concerned and he decided to come to emergency room. Patient found to have acute blood loss anemia secondary to GI bleed. He underwent EGD with GI team found to nonbleeding internal ulcers. Patient is placed on Protonix twice daily, his hemoglobin remained stable at about 9.9 today. Hemodynamically stable. And he was cleared by GI team to resume his aspirin and Plavix which he tolerates well. With no pain or more bleeding. Patient also with no chest pain or dyspnea. Also patient evaluated by orthopedic team he underwent MRI of the left hip which shows tear of the abductor joo muscle secondary to his blunt trauma. No surgery is recommended. Orthopedic team advised pain management and follow-up as an outpatient. Patient informed and he agrees. Patient already on [place] at home, for his chronic neck and back pain and left knee pain and he follows up with pain management with Dr. Buckner, patient wanted and asked specifically to change his medication Percocet because it is stronger and he has been taken it before with no problems. Patient informed since he has medical larry the new prescription for Percocet may affect this contract with Dr. Buckner. He verbalized understanding and agreed to continue with Percocet prescription. Scope narcotics including risk of respiratory depression and/or is discussed with the patient, also pain management goals I discussed with him and he agrees with the plan Patient will follow up with Dr. Buckner within a week. MAPS was checked today Patient will be discharged on a Protonix, blood pressure was low normal, currently 105/64, while he is continued on atenolol. His Norvasc and lisinopril upon discharge and follow-up as an outpatient, he informed and he agrees. Today he shouldn't back to his baseline. No other new complaints. Patient is a car to go home today. at bedside. Patient is cleared for discharge by orthopedic and GI team Problems and management plan were discussed with the patient and he verbalized understanding and acceptance Patient was found stable and can be discharged home however he needs follow-up as an outpatient. Patient was instructed to follow up with PCP Dr. Ramos within one week and patient agrees with the appointments made for him on 09/04. Also he agrees with the appointments made for him with Dr. Antonina CORTEZ on 09/[address] Renee on 09/15 and states he will follow-up. Also patient was instructed to follow up with Dr. Rios in 2 weeks for his chronic leukocytosis and his pain management clinic with Dr. Suarez in one week and he agrees to call and make appointments Physical exam Gen: patient is a AAOx3, no distress CVS: S1-S2, RRR, no murmur Lungs: B/L CTA, no wheezing Abdomen: soft, no distention, no tenderness, positive bowel sounds Extremity: no leg edema or induration. Left greater trochanteric area tenderness Time spent more than 35 minutes Patient Condition at Discharge: Serious Plan - Discharge Summary Discharge Rx Participant: No New Discharge Prescriptions: New Pantoprazole [Protonix] 40 mg PO AC-BID #60 tablet. Lidocaine 5% Patch [Lidoderm 5% Patch] 1 patch TOPICAL DAILY #7 patch Ferrous Sulfate [Iron (65 MG Elemental)] 325 mg PO TID-W/MEALS #90 tab oxyCODONE HCL/ACETAMINOPHEN [Percocet 10-325 mg] 1 tab PO Q6HR PRN 3 Days #12 tab PRN Reason: Pain Continue Cyclobenzaprine [Flexeril] 10 mg PO TID PRN PRN Reason: Muscle Spasm Aspirin 81 mg PO HS atenoloL [Tenormin] 25 mg PO HS Furosemide [Lasix] 20 mg PO Q48H PRN PRN Reason: wt gain ALPRAZolam [Xanax] 0.5 - 1 mg PO BID Nitroglycerin Sl Tabs [Nitrostat] 0.4 mg SL Q5M PRN PRN Reason: Chest Pain Atorvastatin [Lipitor] 80 mg PO HS Clopidogrel [Plavix] 75 mg PO HS Discontinued lisinopriL [Prinivil] 20 mg PO HS 30 Days #30 tablet Hydrocodone/Acetaminophen [[place] 10-325] 1 tab PO QID amLODIPine [Norvasc] 2.5 mg PO DAILY Discharge Medication List Aspirin 81 mg PO HS 12/23/13 [History] Cyclobenzaprine [Flexeril] 10 mg PO TID PRN 12/23/13 [History] atenoloL [Tenormin] 25 mg PO HS 12/23/13 [History] ALPRAZolam [Xanax] 0.5 - 1 mg PO BID 07/13/18 [History] Furosemide [Lasix] 20 mg PO Q48H PRN 05/06/19 [History] Nitroglycerin Sl Tabs [Nitrostat] 0.4 mg SL Q5M PRN 04/07/20 [History] Atorvastatin [Lipitor] 80 mg PO HS 08/27/20 [History] Clopidogrel [Plavix] 75 mg PO HS 08/27/20 [History] Ferrous Sulfate [Iron (65 MG Elemental)] 325 mg PO TID-W/MEALS #90 tab 08/31/20 [Rx] Lidocaine 5% Patch [Lidoderm 5% Patch] 1 patch TOPICAL DAILY #7 patch 08/31/20 [Rx] Pantoprazole [Protonix] 40 mg PO AC-BID #60 tablet. 08/31/20 [Rx] oxyCODONE HCL/ACETAMINOPHEN [Percocet 10-325 mg] 1 tab PO Q6HR PRN 3 Days #12 tab 08/31/20 [Rx] Follow up Appointment(s)/Referral(s): Harvey Rios MD [STAFF PHYSICIAN] - 2 Weeks (Office will call patient with appointment time) Soo Olivier MD [Primary Care Provider] - 09/04/20 10:10 am Gavi Sarkar MD [STAFF PHYSICIAN] - 09/27/20 1:30 pm (gi ,follow up the result of your EGD biopsy) Nam Renee DO [Doctor of Osteopathic Medicine] - 09/15/20 8:20 am Patient Instructions/Handouts: Gastrointestinal Bleeding (DC), Upper Endoscopy (DC) Activity/Diet/Wound Care/Special Instructions: Heart healthy diet activity is restricted till you see your doctor We recommend to avoid NSAIDs. No more treatment. No naproxen. No Mobic. no votarin cream or aspirin cream. Or other similar medications But Okay for baby aspirin for your heart disease Discharge Disposition: HOME SELF-CARE
[2020-08-31] MEDS ORDERED: FERROUS SULFATE 325 MG TAB PO SCH (21:59)
== END 2020-08-31 14:55 | disposition home or self-care (01) | DRG 378 ==
LOC: EC 21:32 → 4SSUR 23:02 → OBSVTOIN 08-29 16:55
PROVIDERS: ADMIT Hospitalist; ATTEND Hospitalist
PROC: 0DJ08ZZ Inspection of Upper Intestinal Tract, Via Natural or Artificial Opening Endoscopic (ICD-10-PCS; principal; 2020-08-29 12:45)
DX: K26.4 Chronic or unspecified duodenal ulcer with hemorrhage (principal); D62 Acute posthemorrhagic anemia; D72.829 Elevated white blood cell count, unspecified; T39.395A Adverse effect of other nonsteroidal anti-inflammatory drugs [NSAID], initial encounter; Z20.822 Contact with and (suspected) exposure to COVID-19; G89.29 Other chronic pain; M70.62 Trochanteric bursitis, left hip; I10 Essential (primary) hypertension; J45.909 Unspecified asthma, uncomplicated; E78.5 Hyperlipidemia, unspecified; I25.10 Atherosclerotic heart disease of native coronary artery without angina pectoris; F41.9 Anxiety disorder, unspecified; M54.2 Cervicalgia; K57.30 Diverticulosis of large intestine without perforation or abscess without bleeding; M19.90 Unspecified osteoarthritis, unspecified site; M25.562 Pain in left knee; M25.572 Pain in left ankle and joints of left foot; M54.5 Low back pain; M79.672 Pain in left foot; K59.00 Constipation, unspecified; H93.13 Tinnitus, bilateral; F17.210 Nicotine dependence, cigarettes, uncomplicated; Z71.6 Tobacco abuse counseling; Z79.82 Long term (current) use of aspirin; Z79.02 Long term (current) use of antithrombotics/antiplatelets; Z79.899 Other long term (current) drug therapy; Z95.5 Presence of coronary angioplasty implant and graft; Z86.69 Personal history of other diseases of the nervous system and sense organs; Z87.19 Personal history of other diseases of the digestive system; Z98.890 Other specified postprocedural states; Z91.030 Bee allergy status; Z88.5 Allergy status to narcotic agent; Z88.0 Allergy status to penicillin; Z80.3 Family history of malignant neoplasm of breast; Z82.49 Family history of ischemic heart disease and other diseases of the circulatory system
CPT/HCPCS: 36415; 43235; 71045; 72197; 73502; 80048; 80053; 81003; 82272; 83605; 84484; 84550; 85025; 85027; 85610; 85652; 85730; 86140; 86850; 86900; 86901; 87635; 96374; 96375; 99285

== ENCOUNTER → 2020-11-10 | Outpatient (CLI) | payer BC ==
--- NOTE | 2020-11-14 06:17 | PE ---
EXAMINATION TYPE: PET CT fusion skull to thigh DATE OF EXAM: 11/10/2020 COMPARISON: CT abdomen and pelvis May 18, 2018. MRI pelvis August 30, 2020. HISTORY: Recent diagnosis of mantle cell lymphoma on blood work. TECHNIQUE: Following the intravenous administration of 11.47 mCi of F-18 FDG, whole body images are performed from the skull base to the midthigh. Images are reviewed on the computer in the coronal, a xial, and sagittal planes. Reconstructed rotating images are created on independent workstation and reviewed on the computer. A localization and attenuation correction CT is performed in conjunction with the PET scan. Blood glucose level equals 94 SCAN: Initial Scan FINDINGS: Mean SUV mediastinum: 0.62 Mean SUV liver: 2.00 SKULL BASE AND NECK: No areas of abnormal hypermetabolic uptake. CHEST, MEDIASTINUM, AND HILAR REGION: No areas of abnormal hypermetabolic uptake. ABDOMEN AND PELVIS: Normal excretion is seen. Nonspecific bowel uptake left lower quadrant and upper pelvis near junction of left and sigmoid colon. No areas of suspicious hypermetabolic uptake. Liver n ormal in size. Spleen size upper limits of normal. OSSEOUS STRUCTURES: No areas of suspicious hypermetabolic uptake. OTHER CT: Coronary artery calcification and/or stents are present. Dependent atelectasis bilateral lo wer lobes. There is a stable 6 mm nonobstructing calculus right kidney midpole level axial image 158 redemonstra delmy. Moderate calcified plaque of the distal abdominal aorta extends into iliac branch vessels. Prost ate gland upper limits of normal in size. Slight grade 1 anterolisthesis L4 and L5. IMPRESSION: No abnormal hypermetabolic masses or enlarged lymph nodes to suggest active lymphoma.
== END | disposition home or self-care (01) ==
LOC: RADPETMAIN 12:50
PROVIDERS: ATTEND Internal Medicine Hematology & Oncology
DX: C83.18 Mantle cell lymphoma, lymph nodes of multiple sites (principal)
CPT/HCPCS: 78815; A9552

== ENCOUNTER → 2021-08-03 | Outpatient (CLI) | payer BC ==
--- NOTE | 2021-07-09 13:04 | CT ---
EXAMINATION TYPE: CT ChestAbdPelvis w con DATE OF EXAM: 07/09/2021 COMPARISON: PET/CT 11/10/2020, CT 05/18/2018 HISTORY: RLQ pain CT DLP: 1356.4 mGycm Automated exposure control for dose reduction was used. CONTRAST: CT scan of the chest, abdomen and pelvis is performed with Oral Contrast and with IV Contrast, patien t injected with 100 mL of Isovue 300. FINDINGS: LUNGS: The lungs are grossly clear, there is no concerning parenchymal mass or nodule identified. T here is no pleural effusion or pneumothorax seen. The tracheobronchial tree is patent. MEDIASTINUM: There are no greater than 1 cm hilar or mediastinal lymph nodes. No pericardial effusi on is seen. AORTA: No significant abnormality is seen. OTHER: Coronary artery calcification noted. LIVER/GB: Portal node appears somewhat prominently axial image 60 and axial image 61, short axis shaniqua urements of approximately 15 to 16 mm. PANCREAS: No significant abnormality is seen. SPLEEN: No significant abnormality is seen. ADRENALS: No significant abnormality is seen. KIDNEYS: Punctate nonobstructive calculus is present at the lower pole of the right kidney measuring 4 to 5 mm, cortical cyst is present at the lower pole the left kidney posteriorly measuring 12 mm. REPRODUCTIVE ORGANS: No gross abnormality seen. BOWEL: Retained fecal debris present throughout the distribution of the colon. The appendix is tramaine l. FREE AIR: No Free Air visible. ASCITES: None seen. RETROPERITONEAL ADENOPATHY: No retroperitoneal adenopathy is seen. LYMPH NODES: No greater than 1 cm abdominal or pelvic lymph nodes are appreciated. URINARY BLADDER: No significant abnormality is seen. PELVIC ADENOPATHY: None visualized. OSSEOUS STRUCTURES: There are degenerative disc changes, facet arthropathy noted in the lower lumbar spine, suspect spinal stenosis at L4-5, anterolisthesis grade 1 is present L4-5. IMPRESSION: Correlate for fecal stasis. Nonobstructive right-sided nephrolithiasis. Portal nodes appe ars somewhat more prominently than on prior exams, there are differences in technique compared to PET /CT. Possible spinal stenosis, there is degenerative disc disease, facet arthropathy in the visualize d spine.
== END | disposition home or self-care (01) ==
LOC: RADCTMAIN 11:59
PROVIDERS: ATTEND Internal Medicine Hematology & Oncology
DX: R10.31 Right lower quadrant pain (principal)
CPT/HCPCS: 82565; 84520; 71260; 74177; 36415; Q9967

== ENCOUNTER → 2021-12-13 | Outpatient (CLI) | payer BC ==
--- NOTE | 2021-12-13 12:00 | CT ---
EXAMINATION TYPE: CT ChestAbdPelvis w con DATE OF EXAM: 12/13/2021 COMPARISON: Prior CT July 09, 2021 and older studies. HISTORY: ANEMIA. History of mantle cell lymphoma. CT DLP: 1754 mGycm. Automated Exposure Control for Dose Reduction was Utilized. CONTRAST: CT scan of the thorax, abdomen and pelvis is performed with oral and with IV Contrast, patient inject ed with 70 mL of Isovue 300. FINDINGS: LUNGS: There is 5 mm peripheral right lower lobe nodule image 32 not clearly seen on prior. No great er than 5 mm pulmonary nodules or masses otherwise seen. No suspicious focal consolidation. There is no pleural effusion or pneumothorax seen. The tracheobronchial tree is patent. MEDIASTINUM: There are no greater than 1 cm hilar or mediastinal lymph nodes. No cardiomegaly or pe ricardial effusion is seen. Coronary artery calcification is redemonstrated which is noted marker fo r underlying coronary artery disease. OTHER: Prominent borderline enlarged bilateral axillary lymph nodes are redemonstrated but not signif icantly changed from prior CT. LIVER/GB: Liver remains normal in size. PANCREAS: No significant abnormality is seen. SPLEEN: Spleen overall heterogeneous and measures upper limits of normal size and coronal images with out significant change from prior. ADRENALS: No significant abnormality is seen. KIDNEYS: Stable 5-6 mm nonobstructing calculus right kidney axial image 69 with 2 lower pole level. BOWEL: Oral contrast does not reach level of the ileum making bowel evaluation slightly suboptimal. N o suspicious small or large bowel dilatation. GENITAL ORGANS: Prostate gland stable and measures within normal limits in size. LYMPH NODES: No greater than 1cm abdominal or pelvic lymph nodes are appreciated. Prominent but subce ntimeter lymph nodes in the left periaortic space are redemonstrated OSSEOUS STRUCTURES: Slight grade 1 anterolisthesis L4 on L5. Slight scoliotic curvature. Mild multile stanley spurring. OTHER: Moderate mixed plaque in the infrarenal abdominal aorta extends into iliac branch vessels. IMPRESSION: No concerning focal fluid collection or hematoma. No new abnormal greater than 1 cm adeno janet.
== END | disposition home or self-care (01) ==
LOC: RADCTMAIN 09:26
PROVIDERS: ATTEND Internal Medicine Hematology & Oncology
DX: D50.9 Iron deficiency anemia, unspecified (principal)
CPT/HCPCS: 71260; 74177; Q9967

== ENCOUNTER → 2022-07-03 | Outpatient (CLI) | payer BC ==
--- NOTE | 2022-07-03 12:33 | CT ---
EXAMINATION TYPE: CT brain wo/w con DATE OF EXAM: 07/03/2022 COMPARISON: None. HISTORY: lymphoma, c/o headaches CT DLP: 2249.3 mGycm Automated exposure control for dose reduction was used. CONTRAST: CT scan of the head is performed without and with IV Contrast, patient injected with 100 mL of Isovue 300. FINDINGS: There is no abnormal enhancing mass. No acute intracranial hemorrhage or midline shift. The ventricl es and sulci are within normal limits in size for patient's age. Zhang-white matter differentiation i s fairly well preserved. The globes are intact and the visualized sinuses are clear. IMPRESSION: Unremarkable study.
--- NOTE | 2022-07-03 12:42 | CT ---
EXAMINATION TYPE: CT ChestAbdPelvis w con DATE OF EXAM: 07/03/2022 COMPARISON: Most recent CT December 13, 2021 and older studies HISTORY: Mantle cell lymphoma CT DLP: 1891.4 mGycm. Automated Exposure Control for Dose Reduction was Utilized. CONTRAST: CT scan of the thorax, abdomen and pelvis is performed with oral and with IV Contrast, patient inject ed with 100 mL of Isovue 300. FINDINGS: LUNGS: There is stable 4 mm peripheral right lower lobe nodule axial image 35. No new greater than 5 mm pulmonary nodules or masses otherwise seen. No suspicious focal consolidation. There is no pleur al effusion or pneumothorax seen. The tracheobronchial tree is patent. MEDIASTINUM: There are prominent but subcentimeter mediastinal lymph nodes slow growing over prior CT s. No cardiomegaly or pericardial effusion is seen. Coronary artery calcification is redemonstrate d . OTHER: Prominent borderline enlarged bilateral axillary lymph nodes are redemonstrated. They are slow growing over several prior CTs including most recent CT, for reference there is a enlarged 2.1 x 1.6 cm left axillary lymph node axial image 9. LIVER/GB: Liver remains normal in size. PANCREAS: No significant abnormality is seen. SPLEEN: Spleen overall heterogeneous and measures mildly enlarged in size on coronal images without s ignificant change from prior. ADRENALS: No significant abnormality is seen. KIDNEYS: Stable 5-6 mm nonobstructing calculus right kidney axial image 69 with 2 lower pole level. BOWEL: Oral contrast reaches level of the terminal ileum making evaluation of distal bowel slightly s uboptimal. No suspicious small or large bowel dilatation. GENITAL ORGANS: Prostate gland stable and measures within normal limits in size. LYMPH NODES: Prominent but subcentimeter lymph nodes in the upper to mid abdomen particularly retrope ritoneum are increased in size from prior studies. There is now an enlarged 2.2 x 1.7 cm lymph node i n the upper abdomen or gastroduodenal junction axial image 16 to just below the left hepatic lobe mar gin corresponding to coronal image 29. OSSEOUS STRUCTURES: Slight grade 1 anterolisthesis L4 on L5 there is redemonstrated. Slight scoliotic curvature is redemonstrated. Mild multilevel spurring. OTHER: Moderate to severe mixed plaque in the infrarenal abdominal aorta extends into iliac branch ve ssels. IMPRESSION: More prominent thoracic and upper abdominal adenopathy is concerning for active lymphoma recurrence. PET/CT follow-up is advised to confirm.
== END | disposition home or self-care (01) ==
LOC: RADCTMAIN 09:56
PROVIDERS: ATTEND Internal Medicine Hematology & Oncology
DX: C83.18 Mantle cell lymphoma, lymph nodes of multiple sites (principal); R59.0 Localized enlarged lymph nodes
CPT/HCPCS: 70470; 71260; 74177; Q9967

== ENCOUNTER → 2023-01-14 | Outpatient (CLI) | payer MEDICARE, BC ==
[2023-01-14 10:55] LABS: African American GFR (CKD) 80 (>60 ml/min/1.73 sqM); Blood Urea Nitrogen 23 mg/dL (9-20); Non-African American GFR(CKD) 69 (>60 ml/min/1.73 sqM)
--- NOTE | 2023-01-14 14:07 | CT ---
EXAMINATION TYPE: CT ChestAbdPelvis w con DATE OF EXAM: 01/14/2023 COMPARISON: 07/03/2022, 12/13/2021 HISTORY: 63-year-old male C83.18, obs for mets. hx of lymphoma TECHNIQUE: Contiguous axial scanning of the chest, abdomen, and pelvis performed with IV Contrast, pa tient injected with 100 mL of Isovue 300. Delayed images through the kidneys were obtained. Coronal/s agittal reconstructions performed. CT DLP: 1387.70 mGycm Automated exposure control for dose reduction was used. FINDINGS: CHEST: The heart is normal size without pericardial effusion. LAD and RCA coronary calcifications are presen t. Mild atherosclerotic arch calcifications with conventional arch vessel branching anatomy. No mediastinal or hilar adenopathy seen. Scattered prominent bilateral axillary lymph nodes remain bu t have decreased in size in the interval. For example, dominant lymph node on the left previously tr sured 2.1 x 1.6 cm and currently 1.9 x 0.9 cm. On the right, previously measured up to 1.8 cm and cur rently 1.4 cm. Some strandy atelectasis in the lower lungs. Mild emphysematous changes suspected. No consolidation o r pleural effusion. ABDOMEN: No focal liver lesion or biliary ductal dilatation. Portal venous system is patent. Gallbladder, adrenal glands, left kidney, and pancreas within normal limits. A 7 mm nonobstructive ri ght renal calculus. Scattered nonenlarged and borderline sized retroperitoneal lymph nodes measuring up to 1.2 cm current ly versus 1.5 cm, previously have also diminished in size. Spleen measures 15.4 cm increased from 14.2 cm, previously. Moderate amount of scattered plaque and calcifications infrarenal abdominal aorta and iliac arteries. No dilated small bowel, free fluid, or free air. There is moderate stool burden. Sigmoid diverticulosis. No pericolonic inflammatory change. PELVIS: Bladder is urine distended. Prostate gland measures 4.5 cm wide. Bilateral external iliac chain lymph nodes measure up to 1.0 cm, decreased from 1.5 cm, previously. Inguinal lymph nodes are also smaller and no longer enlarged. BONES: Mild degenerative change at both hips. Degenerative change SI joints with bony ankylosis on the left. Facet arthropathy lower lumbar spine with degenerative grade 1 anterolisthesis L4-L5. Normal variant sternal foramen. Mild to moderate degenerative disc disease midthoracic spine. IMPRESSION: 1. PARTIAL IMPROVEMENT IN THE BILATERAL AXILLARY, RETROPERITONEAL, EXTERNAL ILIAC CHAIN, AND INGUINAL ADENOPATHY. ALL OF THESE NODES ARE SMALLER (FOR EXAMPLE, LEFT AXILLARY MEASURING 2.1 X 1.6 CM PREVIO USLY, AND CURRENTLY MEASURING 1.9 X 0.9 CM). 2. HOWEVER, THE SPLEEN IS SLIGHTLY LARGER NOW 15.4 CM VERSUS 14.2 CM, PREVIOUSLY. 3. INCIDENTAL: SUSPECT SOME MILD UNDERLYING EMPHYSEMA. 7 MM NONOBSTRUCTIVE RIGHT RENAL CALCULUS. SIGM OID DIVERTICULOSIS.
== END | disposition home or self-care (01) ==
LOC: RADCTMAIN 10:05
PROVIDERS: ATTEND Internal Medicine Hematology & Oncology
DX: C83.18 Mantle cell lymphoma, lymph nodes of multiple sites (principal); D50.9 Iron deficiency anemia, unspecified; D72.820 Lymphocytosis (symptomatic); N20.0 Calculus of kidney; K57.30 Diverticulosis of large intestine without perforation or abscess without bleeding; R59.0 Localized enlarged lymph nodes; R16.1 Splenomegaly, not elsewhere classified
CPT/HCPCS: 82565; 84520; 71260; 74177; 36415; Q9967

== ENCOUNTER 2023-04-04 23:21 | Emergency (ER) | payer MEDICARE, BC ==
--- NOTE | 2023-04-05 00:35 | ED ---
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 Patient's last chemo in his right arm was approximately 2 months ago. Has been using his left arm recently however states that today woke up with pain and swelling along the front of his right forearm. No chest pain or shortness of breath. No other complaints. - Related Data Home Medications Medication Instructions Recorded Confirmed Aspirin 81 mg PO HS 12/23/13 08/27/20 Cyclobenzaprine [Flexeril] 10 mg PO TID PRN 12/23/13 08/27/20 atenoloL [Tenormin] 25 mg PO HS 12/23/13 08/27/20 ALPRAZolam [Xanax] 0.5 - 1 mg PO BID 07/13/18 08/27/20 Furosemide [Lasix] 20 mg PO Q48H PRN 07/13/18 08/27/20 Nitroglycerin Sl Tabs [Nitrostat] 0.4 mg SL Q5M PRN 04/07/20 08/27/20 Atorvastatin [Lipitor] 80 mg PO HS 08/27/20 08/27/20 Clopidogrel [Plavix] 75 mg PO HS 08/27/20 08/27/20 Previous Rx's Medication Instructions Recorded Ferrous Sulfate [Iron (65 MG 325 mg PO TID-W/MEALS #90 tab 08/31/20 Elemental)] Lidocaine 5% Patch [Lidoderm 5% 1 patch TOPICAL DAILY #7 patch 08/31/20 Patch] Pantoprazole [Protonix] 40 mg PO AC-BID #60 tablet. 08/31/20 oxyCODONE HCL/ACETAMINOPHEN 1 tab PO Q6HR PRN 3 Days #12 tab 08/31/20 [Percocet 10-325 mg] Cephalexin [Keflex] 500 mg PO Q6HR 7 Days #28 cap 04/05/23 Allergies Allergy/AdvReac Type Severity Reaction Status Date / Time bee pollen [Bee Pollen] Allergy Anaphylaxis Verified 04/04/23 23:24 bee venom protein (honey bee) Allergy Anaphylaxis Verified 04/04/23 23:24 codeine Allergy Unknown Verified 04/04/23 23:24 Penicillins Allergy Rash/Hives Verified 04/04/23 23:24 Review of Systems ROS Statement: Those systems with pertinent positive or pertinent negative responses have been documented in the HPI. ROS Other: All systems not noted in ROS Statement are negative. Past Medical History Past Medical History: Asthma, Coronary Artery Disease (CAD), Hyperlipidemia, Hypertension, Osteoarthritis (OA) Additional Past Medical History / Comment(s): herniated discs back & neck, migraines, constipation (ali), "slight ringing in ears", hx bronchitis, diverticulitis, History of Any Multi-Drug Resistant Organisms: None Reported Past Surgical History: Heart Catheterization With Stent, Hernia Repair Additional Past Surgical History / Comment(s): pain clinic procedures/nerve blocks, three cardiac stent, lesion removed from mouth umbilical, and r&l inguinal Past Anesthesia/Blood Transfusion Reactions: No Reported Reaction Date of Last Stent Placement:: 05/18/2020 Past Psychological History: Anxiety Smoking Status: Current every day smoker Past Alcohol Use History: Occasional Past Drug Use History: None Reported - Past Family History Mother Family Medical History: Cancer, Coronary Artery Disease (CAD) Additional Family Medical History / Comment(s): breast cancer, three stents,. at 78 General Exam Limitations: no limitations General appearance: alert, in no apparent distress Eye exam: Present: normal appearance Neck exam: Present: normal inspection Respiratory exam: Present: normal lung sounds bilaterally Cardiovascular Exam: Present: regular rate, normal rhythm GI/Abdominal exam: Present: soft Extremities exam: Present: other (Right upper extremity does have some warmth and erythema seeming to follow his veins distal to the right AC.) Neurological exam: Present: alert, oriented X3 Skin exam: Present: warm, dry Course Vital Signs 04/04/23 04/05/23 23:25 02:44 Temperature 97.9 F 98.2 F Pulse Rate 88 52 L Respiratory 18 16 Rate Blood Pressure 159/72 121/59 O2 Sat by Pulse 98 96 Oximetry Medical Decision Making - Medical Decision Making Was pt. sent in by a medical professional or institution (, PA, ORDER ENTRY, urgent care, hospital, or [place] health care facility...) When possible be specific @ -No Did you speak to anyone other than the patient for history (EMS, parent, family, police, friend...)? What history was obtained from this source @ -No Did you review nursing and triage notes (agree or disagree)? Why? @ -I reviewed and agree with nursing and triage notes Were old charts reviewed (outside hosp., previous admission, EMS record, old EKG, old radiological studies, urgent care reports/EKG's, [place] health care facility records)? Report findings @ -No old charts were reviewed Differential Diagnosis (chest pain, altered mental status, abdominal pain women, abdominal pain men, vaginal bleeding, weakness, fever, dyspnea, syncope, headache, dizziness, GI bleed, back pain, seizure, CVA, palpatations, mental health, musculoskeletal)? @ -Deep venous thrombosis, superficial venous thrombosis, phlebitis. This is not meant to be an all-inclusive list. EKG interpreted by me (3pts min.). @ -None X-rays interpreted by me (1pt min.). @ -None done CT interpreted by me (1pt min.). @ -None done U/S interpreted by me (1pt. min.). @ -Ultrasound of the right upper extremity interpreted by me showing superficial venous thrombosis of the basilic vein. What testing was considered but not performed or refused? (CT, X-rays, U/S, labs)? Why? @ -None What meds were considered but not given or refused? Why? @ -None Did you discuss the management of the patient with other professionals (professionals i.e. , PA, ORDER ENTRY, lab, RT, psych nurse, manager social, protocol manager, teacher, booking police officer, child support case officer)? Give summary @ -No Was smoking cessation discussed for >3mins.? @ -No Was critical care preformed (if so, how long)? @ -No Were there social determinants of health that impacted care today? How? (Homelessness, low income, unemployed, alcoholism, drug addiction, transportation, low edu. Level, literacy, decrease access to med. care, long term, rehab)? @ -No Was there de-escalation of care discussed even if they declined (Discuss DNR or withdrawal of care, Hospice)? DNR status @ -No What co-morbidities impacted this encounter? (DM, HTN, Smoking, COPD, CAD, Cancer, CVA, ARF, Chemo, Hep., AIDS, mental health diagnosis, sleep apnea, morbid obesity)? @ -None Was patient admitted / discharged? Hospital course, mention meds given and route , prescriptions, significant lab abnormalities, going to OR and other pertinent info. @ -Discharge 63-year-old male with a history of mantle cell lymphoma currently on chemotherapy presenting to the ED with complaints of right arm swelling and pain. Laboratory studies reviewed. Labs significant for an elevated white blood cell count at 13.4. Otherwise labs including chemistry panel UA largely unremarkable. Doppler ultrasound did show superficial venous thrombosis of the basilic vein. On exam, there was some warmth and erythema. Therefore, patient provided antibiotics to cover for infection. Patient was advised to use NSAIDs, compression, elevation and reevaluation by his PCP within the week. At this time vital signs stable afebrile. Discharged home in stable condition. Discussed return precautions with patient who verbalized agreement. Undiagnosed new problem with uncertain prognosis? @ -No Drug Therapy requiring intensive monitoring for toxicity (Heparin, Nitro, Insulin, Cardizem)? @ -No Were any procedures done? @ -No Diagnosis/symptom? @ -Superficial venous thrombosis, right upper extremity Acute, or Chronic, or Acute on Chronic? @ -Acute Uncomplicated (without systemic symptoms) or Complicated (systemic symptoms)? @ -Uncomplicated Side effects of treatment? @ -No Exacerbation, Progression, or Severe Exacerbation? @ -No Poses a threat to life or bodily function? How? (Chest pain, USA, AR, pneumonia, PE, COPD, DKA, ARF, appy, cholecystitis, CVA, Diverticulitis, Homicidal, Suicidal, threat to staff... and all critical care pts) @ -No - Lab Data Result diagrams: 04/05/23 01:45 04/05/23 01:45 Lab Results 04/05/23 04/05/23 04/05/23 Range/Units 01:45 01:45 01:45 WBC 13.4 H (3.8-10.6) k/uL RBC 4.10 L (4.30-5.90) m/uL Hgb 13.9 (13.0-17.5) gm/dL Hct 39.9 (39.0-53.0) % MCV 97.2 (80.0-100.0) fL MCH 33.9 (25.0-35.0) pg MCHC 34.9 (31.0-37.0) g/dL RDW 15.5 (11.5-15.5) % Plt Count 172 (150-450) k/uL MPV 8.4 Neutrophils % 60 % Lymphocytes % 31 % Monocytes % 4 % Eosinophils % 3 % Basophils % 0 % Neutrophils # 8.1 H (1.3-7.7) k/uL Lymphocytes # 4.1 (1.0-4.8) k/uL Monocytes # 0.5 (0-1.0) k/uL Eosinophils # 0.5 (0-0.7) k/uL Basophils # 0.0 (0-0.2) k/uL PT 10.7 (10.0-12.5) sec INR 1.0 (<1.2) APTT 24.0 (22.0-30.0) sec Sodium (137-145) mmol/L Potassium (3.5-5.1) mmol/L Chloride (98-107) mmol/L Carbon Dioxide (22-30) mmol/L Anion Gap mmol/L BUN (9-20) mg/dL Creatinine (0.66-1.25) mg/dL Est GFR (CKD-EPI)AfAm (>60 ml/min/1.73 sqM) Est GFR (CKD-EPI)NonAf (>60 ml/min/1.73 sqM) Glucose (74-99) mg/dL Calcium (8.4-10.2) mg/dL Total Bilirubin (0.2-1.3) mg/dL AST (17-59) U/L ALT (4-49) U/L Alkaline Phosphatase (38-126) U/L Total Protein (6.3-8.2) g/dL Albumin (3.5-5.0) g/dL Urine Color Colorless Urine Appearance Clear (Clear) Urine pH 5.5 (5.0-8.0) Ur Specific [place] 1.007 (1.001-1.035) Urine Protein Negative (Negative) Urine Glucose (UA) Negative (Negative) Urine Ketones Negative (Negative) Urine Blood Negative (Negative) Urine Nitrite Negative (Negative) Urine Bilirubin Negative (Negative) Urine Urobilinogen <2.0 (<2.0) mg/dL Ur Leukocyte Esterase Negative (Negative) 04/05/23 Range/Units 01:45 WBC (3.8-10.6) k/uL RBC (4.30-5.90) m/uL Hgb (13.0-17.5) gm/dL Hct (39.0-53.0) % MCV (80.0-100.0) fL MCH (25.0-35.0) pg MCHC (31.0-37.0) g/dL RDW (11.5-15.5) % Plt Count (150-450) k/uL MPV Neutrophils % % Lymphocytes % % Monocytes % % Eosinophils % % Basophils % % Neutrophils # (1.3-7.7) k/uL Lymphocytes # (1.0-4.8) k/uL Monocytes # (0-1.0) k/uL Eosinophils # (0-0.7) k/uL Basophils # (0-0.2) k/uL PT (10.0-12.5) sec INR (<1.2) APTT (22.0-30.0) sec Sodium 141 (137-145) mmol/L Potassium 4.2 (3.5-5.1) mmol/L Chloride 107 (98-107) mmol/L Carbon Dioxide 29 (22-30) mmol/L Anion Gap 5 mmol/L BUN 15 (9-20) mg/dL Creatinine 1.06 (0.66-1.25) mg/dL Est GFR (CKD-EPI)AfAm 85 (>60 ml/min/1.73 sqM) Est GFR (CKD-EPI)NonAf 74 (>60 ml/min/1.73 sqM) Glucose 85 (74-99) mg/dL Calcium 9.3 (8.4-10.2) mg/dL Total Bilirubin 0.5 (0.2-1.3) mg/dL AST 22 (17-59) U/L ALT 18 (4-49) U/L Alkaline Phosphatase 101 (38-126) U/L Total Protein 6.4 (6.3-8.2) g/dL Albumin 4.1 (3.5-5.0) g/dL Urine Color Urine Appearance (Clear) Urine pH (5.0-8.0) Ur Specific [place] (1.001-1.035) Urine Protein (Negative) Urine Glucose (UA) (Negative) Urine Ketones (Negative) Urine Blood (Negative) Urine Nitrite (Negative) Urine Bilirubin (Negative) Urine Urobilinogen (<2.0) mg/dL Ur Leukocyte Esterase (Negative) Disposition Clinical Impression: Superficial venous thrombosis of arm Disposition: HOME SELF-CARE Condition: Good Instructions (If sedation given, give patient instructions): Superficial Thrombophlebitis (ED) Additional Instructions: Please return to the Emergency Department if symptoms worsen or any other concerns. Please use NSAIDs, elevation, compression and please follow-up with your PCP within the week. Prescriptions: Cephalexin [Keflex] 500 mg PO Q6HR 7 Days #28 cap Is patient prescribed a controlled substance at d/c from ED?: No Referrals: Jam Davis MD [Primary Care Provider] - 1-2 days Time of Disposition: 03:05
[2023-04-05] MEDS ORDERED: MORPHINE SULFATE 4 MG/ML SYRINGE IVP STA (01:22)
[2023-04-05] MEDS ORDERED: HYDROmorphone 1 MG/ML 1 ML SYRINGE IVP STA (01:30)
[2023-04-05 01:57] LABS: Basophils % (A) 0 %; Eosinophils # (A) 0.5 k/uL (0-0.7); Eosinophils % (A) 3 %; HCT 39.9 % (39.0-53.0); HGB 13.9 gm/dL (13.0-17.5); Lymphocytes # (A) 4.1 k/uL (1.0-4.8); Lymphocytes % (A) 31 %; MCH 33.9 pg (25.0-35.0); MCHC 34.9 g/dL (31.0-37.0); MCV 97.2 fL (80.0-100.0); Mean Platelet Volume 8.4; Monocytes # (A) 0.5 k/uL (0-1.0); Monocytes % (A) 4 %; Neutrophils # (A) 8.1 k/uL (1.3-7.7); Neutrophils % (A) 60 %; Platelet Count 172 k/uL (150-450); RDW 15.5 % (11.5-15.5); WBC 13.4 k/uL (3.8-10.6)
[2023-04-05 02:00] LABS: Appearance,Urine Clear (Clear); Bilirubin,Urine Negative (Negative); Blood,Urine Negative (Negative); Color,Urine Colorless; Glucose,Urine (UA) Negative (Negative); Ketones,Urine Negative (Negative); Leukocyte Esterase,Urine Negative (Negative); Nitrite,Urine Negative (Negative); PH, Urine 5.5 (5.0-8.0); Protein,Urine Negative (Negative); Specific Gravity,Urine 1.007 (1.001-1.035); Urobilinogen,Urine <2.0 mg/dL (<2.0)
[2023-04-05 02:06] LABS: Prothrombin Time 10.7 sec (10.0-12.5)
[2023-04-05 02:07] LABS: ALT 18 U/L (4-49); AST 22 U/L (17-59); African American GFR (CKD) 85 (>60 ml/min/1.73 sqM); Albumin 4.1 g/dL (3.5-5.0); Alkaline Phosphatase 101 U/L (38-126); Anion Gap 5 mmol/L; Blood Urea Nitrogen 15 mg/dL (9-20); Calcium 9.3 mg/dL (8.4-10.2); Carbon Dioxide 29 mmol/L (22-30); Chloride 107 mmol/L (98-107); Glucose 85 mg/dL (74-99); Non-African American GFR(CKD) 74 (>60 ml/min/1.73 sqM); Potassium 4.2 mmol/L (3.5-5.1); Sodium 141 mmol/L (137-145); Total Bilirubin 0.5 mg/dL (0.2-1.3); Total Protein 6.4 g/dL (6.3-8.2)
--- NOTE | 2023-04-05 02:33 | US ---
EXAM: US Duplex Right Upper Extremity Veins CLINICAL HISTORY: ITS.REASON US Reason: r/o dvt /phlebitis TECHNIQUE: Real-time duplex ultrasound scan of the right upper extremity veins integrating B-mode two-dimensional vascular structure, Doppler spectral analysis, color flow Doppler imaging and compression. COMPARISON: No previous studies. FINDINGS: Deep veins: Unremarkable. No deep venous thrombosis of the right upper extremity. Superficial veins: Findings suggestive of superficial venous thrombosis of the basilic vein at the proximal right upper extremity and at the lower forearm. Soft tissues: No acute findings. IMPRESSION: 1. Superficial venous thrombosis of the basilic vein. 2. No deep venous thrombosis right upper extremity deep venous system.
[2023-04-05] MEDS ORDERED: CEPHALEXIN 500MG STARTER PACK 4 CAP BTL PO STA (02:58)
[2023-04-05 03:09] VITALS: BP 121/59; PULSE 52; RESP 16; TEMP 98.2
== END 2023-04-05 03:18 | disposition home or self-care (01) ==
LOC: EC 23:21
DX: I82.612 Acute embolism and thrombosis of superficial veins of left upper extremity (principal); I25.10 Atherosclerotic heart disease of native coronary artery without angina pectoris; J45.909 Unspecified asthma, uncomplicated; I10 Essential (primary) hypertension; E78.5 Hyperlipidemia, unspecified; M19.90 Unspecified osteoarthritis, unspecified site; F41.9 Anxiety disorder, unspecified; F17.200 Nicotine dependence, unspecified, uncomplicated; Z79.82 Long term (current) use of aspirin; Z79.899 Other long term (current) drug therapy; Z88.5 Allergy status to narcotic agent; Z88.0 Allergy status to penicillin; Z91.030 Bee allergy status
CPT/HCPCS: 99284; 96374; 36415; 80053; 85025; 85610; 85730; 81003; 93971; J1170; 96372

== ENCOUNTER → 2023-04-08 | Outpatient (CLI) | payer MEDICARE, BC ==
--- NOTE | 2023-04-08 19:30 | CT ---
EXAMINATION TYPE: CT ChestAbdPelvis w con DATE OF EXAM: 04/08/2023 COMPARISON: 01/14/2023 and 07/03/2022 HISTORY: 63-year-old male C83.18 LYMPHOMA, lymphoma TECHNIQUE: Contiguous axial scanning of the chest, abdomen, and pelvis performed with IV Contrast, pa tient injected with 100 cc mL of Isovue 300. Delayed images through the kidneys were obtained. Card l/sagittal reconstructions performed. CT DLP: 1248.4 mGycm Automated exposure control for dose reduction was used. FINDINGS: Chest: Heart normal size without pericardial effusion. RCA and LAD coronary artery calcifications are presen t. Mild atherosclerotic arch calcifications with conventional branching anatomy. Interval decrease in size of bilateral axillary adenopathy. No enlarged lymph nodes by size criteria are identified. No spinal or hilar adenopathy seen. Some strandy interstitial changes in the lower lungs. There is underlying mild emphysematous change a nd possible underlying mild fibrosis in the lower lungs. No consolidation or pleural effusion. ABDOMEN: No focal liver lesion or biliary ductal dilatation. Portal venous system is patent. Gallbladder, adrenal glands, left kidney, and pancreas within normal limits. There is a 6 mm nonobstructive right renal calculus. Symmetric uptake and excretion of contrast from both kidneys. Spleen currently measures 15.2 cm versus 15.4 cm, previously. Moderate emphysematous carotid plaque and calcification especially infrarenal abdominal aorta and wit hin the common iliac arteries. No dilated small bowel, free fluid, or free air. Scattered small retroperitoneal lymph nodes are identified, either stable or smaller from 01/14/2023. No enlarged nodes by size criteria are seen. Normal appendix. Scattered mild to moderate stool burden. There is left-sided colonic diverticulosis. No pericolonic inflammatory change seen. Pelvis: Mild circumferential bladder wall thickening. Prostate gland is enlarged measuring 4.5 cm wide. No ab normal fluid collection in the pelvis or pelvic lymphadenopathy. Bones: Hypertrophic facet arthropathy lumbar spine with degenerative grade 1 anterolisthesis L4-L5. Moderate degenerative disc disease midthoracic spine. Normal variant sternal foramen. Osseous process. IMPRESSION: 1. INTERVAL RESOLUTION OF PREVIOUS AXILLARY ADENOPATHY. OTHER SCATTERED LYMPH NODES SUCH WITHIN TH E INGUINAL REGION AND RETROPERITONEUM ARE ALSO SLIGHTLY SMALLER. NO RESIDUAL LYMPHADENOPATHY BY SIZE CRITERIA. 2. RELATIVELY SIMILAR MILD SPLENOMEGALY AT 15.2 CM VERSUS 15.4 CM, PREVIOUSLY. 3. LEFT SIDED COLONIC DIVERTICULOSIS, MILD PROSTATOMEGALY, AND A NONOBSTRUCTIVE 6 MM RIGHT RENAL CALC ULUS.
== END | disposition home or self-care (01) ==
LOC: RADCTMAIN 13:57
PROVIDERS: ATTEND Internal Medicine Hematology & Oncology
DX: K57.30 Diverticulosis of large intestine without perforation or abscess without bleeding (principal); N20.0 Calculus of kidney; N40.0 Benign prostatic hyperplasia without lower urinary tract symptoms; R16.1 Splenomegaly, not elsewhere classified; C83.18 Mantle cell lymphoma, lymph nodes of multiple sites; D72.820 Lymphocytosis (symptomatic); D72.829 Elevated white blood cell count, unspecified; D50.9 Iron deficiency anemia, unspecified; I10 Essential (primary) hypertension; Z71.3 Dietary counseling and surveillance
CPT/HCPCS: 71260; 74177; Q9967

== ENCOUNTER → 2023-06-17 | Outpatient (CLI) | payer MEDICARE, BC ==
[2023-06-17 13:59] LABS: African American GFR (CKD) 80 (>60 ml/min/1.73 sqM); Blood Urea Nitrogen 20 mg/dL (9-20); Non-African American GFR(CKD) 70 (>60 ml/min/1.73 sqM)
--- NOTE | 2023-06-17 15:45 | CT ---
EXAMINATION TYPE: CT ChestAbdPelvis w con DATE OF EXAM: 06/17/2023 INDICATION: f/u lymphoma COMPARISON: 04/08/2023 CT DLP: 1302.4 mGycm CONTRAST: Performed with Oral Contrast and with IV Contrast, patient injected with 100 ml mL of Isovue 300. TECHNIQUE: Axial images at 5 mm thick sections. Reconstructed images in the coronal plane. Delayed images through the kidneys. FINDINGS: CT CHEST: Portion of the thyroid visualized is normal. No suspicious lung nodules or focal infiltrates are present. No enlarged mediastinal or hilar adenopathy is evident. The ascending aorta diameter at the level of the main pulmonary artery is 3.4 cm. The main pulmonary artery diameter at the bifurcation is 2.2 cm. Coronary artery calcification is present. CT ABDOMEN: Liver: Normal Spleen: Normal Pancreas: Normal Adrenal glands: The adrenal glands are normal. Gallbladder: Normal Kidneys: No masses are evident. No hydronephrosis is present. No cysts are present. There is a 0.5 cm nonobstructing renal stone mid posterior right kidney. Aorta: Vascular calcification is within the aorta. Inferior vena cava: Normal. CT PELVIS: Loops of bowel within the abdomen and pelvis are normal. There are loops of bowel which are incom pletely distended or lack oral contrast limiting their evaluation. Appendix: Normal as visualized. Urinary bladder: Partially Decompressed limiting evaluation. Genitourinary structures: Prostate is normal Osseous structures: No suspicious lytic or sclerotic lesions. Facet degenerative changes are within t he lumbar spine. Lymphadenopathy: No suspicious enlarged lymphadenopathy is evident. Axillary regions appear clear. Me diastinum and hilum are normal. No retrocrural adenopathy. No suspicious enlarged periaortic or retro caval adenopathy. Iliac chains appear normal. Inguinal regions have a couple small lymph nodes. IMPRESSION: 1. No suspicious changes to suggest recurrent or metastatic lymphoma
== END | disposition home or self-care (01) ==
LOC: RADCTMAIN 13:02
PROVIDERS: ATTEND Internal Medicine Hematology & Oncology
DX: C83.18 Mantle cell lymphoma, lymph nodes of multiple sites (principal); D50.9 Iron deficiency anemia, unspecified; D72.820 Lymphocytosis (symptomatic); D72.829 Elevated white blood cell count, unspecified; I10 Essential (primary) hypertension; E78.5 Hyperlipidemia, unspecified
CPT/HCPCS: 82565; 84520; 71260; 74177; 36415; Q9967

== ENCOUNTER → 2024-06-04 | Outpatient (CLI) | payer MEDICARE, BC ==
[2024-06-04 13:16] LABS: African American GFR (CKD) 79 (>60 ml/min/1.73 sqM); Blood Urea Nitrogen 16 mg/dL (9-20); Non-African American GFR(CKD) 68 (>60 ml/min/1.73 sqM)
--- NOTE | 2024-06-04 15:30 | CT ---
EXAMINATION TYPE: CT ChestAbdPelvis w con DATE OF EXAM: 06/04/2024 2:34 PM COMPARISON: 06/27/2023. CLINICAL INDICATION: Male, 64 years old with history of C83.18 MANTLE CELL LYMPHOMA; [facility], f/u lymphom a Technique: CT ChestAbdPelvis w con; Multiple axial images were obtained. Two-dimensional coronal and sagittal reconstructions were obtained. Contrast used:80ml mL of Isovue 300 with IV Contrast, (None if empty) Oral contrast used: with Oral Contrast CT DLP: 1850.70 mGycm, Automated exposure control for dose reduction was used. Findings: CHEST: LUNGS/ PLEURA: No focal consolidation, pneumothorax or pleural effusion. AIRWAY: Patent and unremarkable. HEART: Size within normal limits. Moderate coronary artery calcifications present. MEDIASTINUM: No gross evidence of adenopathy. VASCULATURE: No aortic aneurysm. MUSCULOSKELETAL: Mild disc degeneration changes are present throughout the thoracolumbar spine. SOFT TISSUES/LYMPH NODES: Unremarkable. LOWER NECK: No significant findings. ABDOMEN: ABDOMEN LIVER: Unremarkable GALLBLADDER AND BILE DUCTS: Unremarkable. PANCREAS: Unremarkable. SPLEEN: Unremarkable. ADRENAL GLANDS: Unremarkable. KIDNEYS AND URETERS: Nonobstructing right renal calculus measuring 6 mm. No left renal calculi. No hy dronephrosis bilaterally. PELVIS BLADDER: Unremarkable REPRODUCTIVE: Unremarkable. ABDOMEN & PELVIS STOMACH AND BOWEL: No evidence of bowel obstruction. Moderate amount stool throughout the colon. PERITONEUM/RETROPERITONEUM: No evidence of pneumoperitoneum or free fluid. VASCULATURE: No evidence of aortic aneurysm. MUSCULOSKELETAL: No acute osseous abnormalities. Mild disc degeneration changes are present throughou t the thoracolumbar spine. LYMPH NODES: No gross evidence for lymphadenopathy. SOFT TISSUE/ABDOMINAL WALL: Fat-containing umbilical hernia. IMPRESSION: No new or enlarging lymph nodes identified. [facility], , 06/04/2024 3:27 PM
== END | disposition home or self-care (01) ==
LOC: RADCTMAIN 12:25
PROVIDERS: ATTEND Internal Medicine Hematology & Oncology
DX: C83.18 Mantle cell lymphoma, lymph nodes of multiple sites (principal); D72.829 Elevated white blood cell count, unspecified; D72.820 Lymphocytosis (symptomatic); D50.9 Iron deficiency anemia, unspecified; I10 Essential (primary) hypertension; K42.9 Umbilical hernia without obstruction or gangrene; N20.0 Calculus of kidney
CPT/HCPCS: 82565; 84520; 71260; 74177; 36415; Q9967